=== PATIENT | male | born 1955 | race Caucasian/White ===

== ENCOUNTER → 2021-02-21 11:22 | Outpatient (BNVA) | payer BC, SELFPAY | PROVIDERS: Visit Provider Family Medicine | DX: I10 Essential (primary) hypertension (principal); G89.4 Chronic pain syndrome; E11.9 Type 2 diabetes mellitus without complications; N40.0 Benign prostatic hyperplasia without lower urinary tract symptoms; K21.9 Gastro-esophageal reflux disease without esophagitis; Z98.890 Other specified postprocedural states; J30.9 Allergic rhinitis, unspecified; G89.29 Other chronic pain; Z98.1 Arthrodesis status; Z12.5 Encounter for screening for malignant neoplasm of prostate | CPT/HCPCS: 80053; 83036; 84153 ==

== ENCOUNTER → 2021-03-01 10:56 | Outpatient (BNVA) | payer BC, SELFPAY | PROVIDERS: Visit Provider Emergency Medicine | DX: R68.89 Other general symptoms and signs (principal); Z20.822 Contact with and (suspected) exposure to COVID-19 | CPT/HCPCS: 87400; 87635 ==

== ENCOUNTER → 2021-07-15 10:46 | Outpatient (BNVA) | payer BC, SELFPAY | PROVIDERS: PCP Family Medicine; Visit Provider Family Medicine | DX: E04.9 Nontoxic goiter, unspecified (principal); N40.0 Benign prostatic hyperplasia without lower urinary tract symptoms; Z12.5 Encounter for screening for malignant neoplasm of prostate; Z13.6 Encounter for screening for cardiovascular disorders; Z13.220 Encounter for screening for lipoid disorders; E11.9 Type 2 diabetes mellitus without complications | CPT/HCPCS: 80053; 80061; 83036; 83721; 84153; 84443 ==

== ENCOUNTER → 2021-08-07 10:34 | Outpatient (BNVA) | payer BC, SELFPAY | PROVIDERS: PCP Family Medicine; Visit Provider Internal Medicine | DX: E11.40 Type 2 diabetes mellitus with diabetic neuropathy, unspecified (principal); E78.5 Hyperlipidemia, unspecified; Z78.9 Other specified health status; Z79.4 Long term (current) use of insulin | CPT/HCPCS: 99214 ==

== ENCOUNTER → 2021-10-14 10:12 | Outpatient (BNVA) | payer BC, SELFPAY | PROVIDERS: PCP Family Medicine; Visit Provider Family Medicine | DX: E11.9 Type 2 diabetes mellitus without complications (principal); R13.10 Dysphagia, unspecified; G89.4 Chronic pain syndrome; Z98.1 Arthrodesis status; M54.9 Dorsalgia, unspecified; J30.9 Allergic rhinitis, unspecified; R25.2 Cramp and spasm; J30.1 Allergic rhinitis due to pollen; I10 Essential (primary) hypertension; N40.0 Benign prostatic hyperplasia without lower urinary tract symptoms; E78.5 Hyperlipidemia, unspecified; Z78.9 Other specified health status | CPT/HCPCS: 80048; 83036 ==

== ENCOUNTER → 2022-01-06 11:11 | Outpatient (BNVA) | payer MEDICARE, SELFPAY | PROVIDERS: PCP Family Medicine; Visit Provider Family Medicine | DX: G89.4 Chronic pain syndrome (principal); Z98.1 Arthrodesis status; M54.9 Dorsalgia, unspecified; I10 Essential (primary) hypertension; E11.9 Type 2 diabetes mellitus without complications; R25.2 Cramp and spasm; J30.1 Allergic rhinitis due to pollen; Z98.890 Other specified postprocedural states; N40.0 Benign prostatic hyperplasia without lower urinary tract symptoms; K21.9 Gastro-esophageal reflux disease without esophagitis; M25.512 Pain in left shoulder | CPT/HCPCS: 73030 ==

== ENCOUNTER → 2022-04-07 11:20 | Outpatient (BNVA) | payer MEDICARE, SELFPAY | PROVIDERS: PCP Family Medicine; Visit Provider Family Medicine | DX: K21.9 Gastro-esophageal reflux disease without esophagitis (principal); N40.0 Benign prostatic hyperplasia without lower urinary tract symptoms; I10 Essential (primary) hypertension; E11.9 Type 2 diabetes mellitus without complications; G89.4 Chronic pain syndrome; Z98.890 Other specified postprocedural states; J30.9 Allergic rhinitis, unspecified; J30.1 Allergic rhinitis due to pollen; R25.2 Cramp and spasm; M25.512 Pain in left shoulder; M54.9 Dorsalgia, unspecified | CPT/HCPCS: 80048; 83036 ==

== ENCOUNTER → 2022-04-25 09:59 | Outpatient (BNVA) | payer MEDICARE, SELFPAY | PROVIDERS: PCP Family Medicine; Visit Provider Student in an Organized Health Care Education/Training Program | DX: M12.812 Other specific arthropathies, not elsewhere classified, left shoulder (principal); S49.92XA Unspecified injury of left shoulder and upper arm, initial encounter; W19.XXXA Unspecified fall, initial encounter | CPT/HCPCS: 20610; 73030; 99203; 99204; J3301 ==

== ENCOUNTER → 2022-06-06 07:55 | Outpatient (BNVA) | payer MEDICARE, SELFPAY | PROVIDERS: PCP Family Medicine; Visit Provider Student in an Organized Health Care Education/Training Program | DX: M12.812 Other specific arthropathies, not elsewhere classified, left shoulder (principal) | CPT/HCPCS: 99213 ==

== ENCOUNTER → 2022-08-08 13:07 | Outpatient (BNVA) | payer MEDICARE, SELFPAY | PROVIDERS: PCP Family Medicine; Visit Provider Emergency Medicine | DX: M17.12 Unilateral primary osteoarthritis, left knee (principal); M25.562 Pain in left knee | CPT/HCPCS: 73562 ==

== ENCOUNTER → 2022-10-03 10:18 | Outpatient (BNVA) | payer MEDICARE, SELFPAY | PROVIDERS: PCP Family Medicine; Referring Provider Family Medicine; Visit Provider Internal Medicine | DX: E11.40 Type 2 diabetes mellitus with diabetic neuropathy, unspecified (principal); E78.5 Hyperlipidemia, unspecified; Z78.9 Other specified health status; Z79.84 Long term (current) use of oral hypoglycemic drugs | CPT/HCPCS: 99214 ==

== ENCOUNTER → 2022-10-17 08:23 | Outpatient (BNVA) | payer MEDICARE, SELFPAY | PROVIDERS: PCP Family Medicine; Referring Provider Family Medicine; Visit Provider Otolaryngology | DX: E04.1 Nontoxic single thyroid nodule (principal); E04.2 Nontoxic multinodular goiter; T17.908A Unspecified foreign body in respiratory tract, part unspecified causing other injury, initial encounter; X58.XXXA Exposure to other specified factors, initial encounter | CPT/HCPCS: 31575; 99204 ==

== ENCOUNTER 2022-11-12 14:01 | Outpatient (CLI) | payer MEDICARE, SELFPAY ==
--- NOTE | 2022-11-12 14:30 | US_ITS ---
WS: [id number] THYROID ULTRASOUND HISTORY: thyroid nodule COMPARISON: None available. Right lobe: 2.6 cm x 2.9 cm x 4.4 cm (w x ap x l). Volume: 17.2 cm3. Normal size gland. There is a very hypoechoic nodule in the mid posterior gland measuring 1.2 x 0.9 x 1.2 cm. No echogenic foci. There is a small colloid cyst in the anterior mid gland. This is less peri n a centimeter. Left lobe: 2.0 cm x 2.1 cm x 4.9 cm (w x ap x l). Volume: 10.8 cm3. Hypoechoic lobulated nodule is noted in the inferior pole measuring 1.0 x 0.7 x 1.4 cm. Mild peripher al increased vascularity. No echogenic foci. Isthmus: 0.4 cm. US/US thyroid [id number] IMPRESSION: 1. Mid RIGHT thyroid nodule (TI-rads 4). Moderately suspicious based upon the TI- rads criteria. Recommend yearly evaluation. If this nodule becomes greater than 1.5 cm biopsy may be obtained. This may be difficult to biopsy due to its very posterior and deep position within the thyroid. 2. LEFT thyroid nodule. As per history this nodule has undergone a prior biops y. No prior studies for comparison. This nodule can also be reevaluated in one year.
== END 2022-11-12 14:02 | disposition home or self-care (01) ==
LOC: RAD 14:04
PROVIDERS: PCP Family Medicine; Visit Provider Otolaryngology
DX: E04.1 Nontoxic single thyroid nodule (principal)
CPT/HCPCS: 76536

== ENCOUNTER → 2022-11-25 14:37 | Outpatient (BNVA) | payer MEDICARE, SELFPAY | PROVIDERS: PCP Family Medicine; Visit Provider Family Medicine | DX: E11.9 Type 2 diabetes mellitus without complications (principal); G89.4 Chronic pain syndrome; Z98.1 Arthrodesis status; M54.9 Dorsalgia, unspecified; G89.29 Other chronic pain; N40.0 Benign prostatic hyperplasia without lower urinary tract symptoms; Z98.890 Other specified postprocedural states; I10 Essential (primary) hypertension; J30.1 Allergic rhinitis due to pollen; J40 Bronchitis, not specified as acute or chronic; E78.5 Hyperlipidemia, unspecified | CPT/HCPCS: 80053; 80061; 83036 ==

== ENCOUNTER → 2022-11-26 10:10 | Outpatient (BNVA) | payer MEDICARE, SELFPAY | PROVIDERS: PCP Family Medicine; Visit Provider Otolaryngology | DX: E04.2 Nontoxic multinodular goiter (principal) | CPT/HCPCS: 99213 ==

== ENCOUNTER → 2023-01-02 10:45 | Outpatient (BNVA) | payer MEDICARE, SELFPAY | PROVIDERS: PCP Family Medicine; Visit Provider Internal Medicine | DX: E11.9 Type 2 diabetes mellitus without complications (principal); E78.2 Mixed hyperlipidemia; Z78.9 Other specified health status; Z79.84 Long term (current) use of oral hypoglycemic drugs | CPT/HCPCS: 99214 ==

== ENCOUNTER → 2023-01-08 14:44 | Outpatient (BNVA) | payer MEDICARE, SELFPAY | PROVIDERS: PCP Family Medicine; Visit Provider Family Medicine | DX: E11.9 Type 2 diabetes mellitus without complications (principal); M54.50 Low back pain, unspecified; G47.33 Obstructive sleep apnea (adult) (pediatric); E78.2 Mixed hyperlipidemia; R74.8 Abnormal levels of other serum enzymes; M54.9 Dorsalgia, unspecified; G89.29 Other chronic pain | CPT/HCPCS: 81000; 87086 ==

== ENCOUNTER → 2023-02-05 08:50 | Outpatient (BNVA) | payer MEDICARE, SELFPAY | PROVIDERS: PCP Family Medicine; Visit Provider Family Medicine | DX: G89.4 Chronic pain syndrome (principal); Z98.1 Arthrodesis status; M54.9 Dorsalgia, unspecified; G89.29 Other chronic pain; E11.9 Type 2 diabetes mellitus without complications; I10 Essential (primary) hypertension; G47.33 Obstructive sleep apnea (adult) (pediatric); R74.8 Abnormal levels of other serum enzymes; J06.9 Acute upper respiratory infection, unspecified; Z96.89 Presence of other specified functional implants | CPT/HCPCS: 80053; 83036 ==

== ENCOUNTER → 2023-02-12 13:56 | Outpatient (BNVA) | payer MEDICARE, SELFPAY | PROVIDERS: PCP Family Medicine; Visit Provider Student in an Organized Health Care Education/Training Program | DX: M12.812 Other specific arthropathies, not elsewhere classified, left shoulder (principal) | CPT/HCPCS: 20610; 73030; 99214; J3301 ==

== ENCOUNTER → 2023-03-05 14:06 | Outpatient (BNVA) | payer MEDICARE, SELFPAY | PROVIDERS: PCP Family Medicine; Visit Provider Orthopaedic Surgery | DX: M54.50 Low back pain, unspecified (principal); G89.29 Other chronic pain; M54.9 Dorsalgia, unspecified | CPT/HCPCS: 72110; 99204 ==

== ENCOUNTER → 2023-05-14 07:58 | Outpatient (BNVA) | payer MEDICARE, SELFPAY | PROVIDERS: PCP Family Medicine; Visit Provider Student in an Organized Health Care Education/Training Program | DX: M12.812 Other specific arthropathies, not elsewhere classified, left shoulder (principal); G56.01 Carpal tunnel syndrome, right upper limb | CPT/HCPCS: 99213 ==

== ENCOUNTER → 2023-05-21 14:22 | Outpatient (BNVA) | payer MEDICARE, SELFPAY | PROVIDERS: PCP Family Medicine; Visit Provider Orthopaedic Surgery | DX: M48.02 Spinal stenosis, cervical region (principal); M47.22 Other spondylosis with radiculopathy, cervical region; Z96.82 Presence of neurostimulator | CPT/HCPCS: 72050; 99214 ==

== ENCOUNTER → 2023-05-25 10:59 | Outpatient (BNVA) | payer MEDICARE, SELFPAY | PROVIDERS: PCP Family Medicine; Visit Provider Family Medicine | DX: E11.9 Type 2 diabetes mellitus without complications (principal); E78.5 Hyperlipidemia, unspecified; E78.2 Mixed hyperlipidemia; G89.4 Chronic pain syndrome; Z98.1 Arthrodesis status; M54.9 Dorsalgia, unspecified; G89.29 Other chronic pain; N40.0 Benign prostatic hyperplasia without lower urinary tract symptoms; K21.9 Gastro-esophageal reflux disease without esophagitis; Z98.890 Other specified postprocedural states; I10 Essential (primary) hypertension; G47.33 Obstructive sleep apnea (adult) (pediatric); N52.01 Erectile dysfunction due to arterial insufficiency | CPT/HCPCS: 80048; 80053; 80061; 82043; 83036 ==

== ENCOUNTER 2023-06-17 06:57 | Outpatient (CLI) | payer MEDICARE, SELFPAY ==
--- NOTE | 2023-06-17 07:15 | MR_ITS ---
WS: [id number] MRI LEFT SHOULDER HISTORY: left shoulder pain COMPARISON: Radiographs 02/12/2023 TECHNIQUE: Multiplanar sequences of the shoulder joint are submitted. Severe AC joint arthritis encroaching upon the supraspinatus myotendinous insertion site. Marked hype rtrophic bone formation. Fluid along the AC joint ligament. Mild downsloping of the acromion with con tact on the superior humeral head. Markedly high riding humeral head. No os acromion. Biceps tendon i s not definitely visualized in the bicipital groove. There is a focal area of low signal in the bicip ital groove. If this is the tendon is abnormal. High riding humeral head marked narrowing of the glenohumeral joint. Moderate size joint effusion. Lo ss of the cartilage surrounding the humeral head and glenoid. Abnormal shape and configuration and si gnal in the anterior labrum. Surface fraying of the posterior labrum. There is a large osteophyte fro m the superior glenoid which corresponds to the finding seen on the recent radiograph. Superior labru m is not identified. Marked atrophy of the supraspinatus, infraspinatus and subscapularis muscles. Torn retracted subscapu lucai tendon. Tendon is torn and retracted to the glenoid. Subscapularis is torn and retracted also n ear the glenoid. Fraying along the retracted surface of the tendon. Torn retracted infraspinatus tend on. IMPRESSION: 1. Advanced degenerative changes at the shoulder joint. 2. Severe AC joint arthritis with encroachment upon the myotendinous region of the supraspinatus. 3. Downsloping of the acromion with severe subacromial impingement. Acromion contacts the humeral hea d. 4. Torn rotator cuff muscles include the supraspinatus, infraspinatus and subscapularis tendons with retraction. Muscle atrophy is also evident. 5. Torn and dislocated biceps tendon. 6. Abnormal labrum. Most significant abnormality involves the superior and anterior labrum. 7. Loss of cartilage involving the glenoid and humeral head. 8. Large osteophyte extending superiorly from the glenoid into the joint space.
--- NOTE | 2023-06-17 08:00 | MR_ITS ---
WS: [id number] MRI CERVICAL SPINE NONCONTRAST HISTORY: Chronic neck and LEFT shoulder pain. No injury. COMPARISON: None available. Technique: Multiplanar, multisequence noncontrast imaging of the cervical spine. Normal cervical alignment with no compression fracture or significant disc space narrowing. Signal within the cervical cord is normal. Visualized posterior fossa is unremarkable. Craniocervical junction, C1 and C2 relationship, odontoid process and soft tissues are normal. C2-C3: Normal. C3-C4: Mild annular disc bulging. Moderate-sized LEFT foraminal disc osteophyte complex. Moderate uzair ateral foraminal stenosis and facet arthritis. C4-C5: Moderate bilateral facet arthritis. Mild bilateral foraminal stenosis. C5-C6: Marked annular disc bulging and osteophytic ridging. Mild facet arthritis. Effacement of CSF i s near complete. Moderate central with moderate to severe bilateral foraminal stenosis. C6-C7: Marked annular disc bulging and osteophytic ridging. More focal RIGHT proximal foraminal disc osteophyte complex. Effacement of CSF. Severe central and bilateral foraminal stenosis. C7-T1: Mild annular disc bulging and osteophytic ridging. Mild central and bilateral foraminal stenos is. Paraspinal soft tissue are normal. IMPRESSION: 1. C5-6: Moderate central with moderate to severe bilateral foraminal stenosis. Due to combination of disc, osteophyte and facet disease. 2. C6-7: Severe central and bilateral foraminal stenosis. Stenosis due to disc, osteophyte and facet disease. 3. C3-4: Moderate bilateral foraminal stenosis. 4. C7-T1: Mild central and bilateral foraminal stenosis. 5. C4-5: Mild bilateral foraminal stenosis.
== END 2023-06-17 06:58 | disposition home or self-care (01) ==
LOC: RAD 06:57
PROVIDERS: PCP Family Medicine; Visit Provider Orthopaedic Surgery
DX: M12.812 Other specific arthropathies, not elsewhere classified, left shoulder (principal); M48.02 Spinal stenosis, cervical region; M75.102 Unspecified rotator cuff tear or rupture of left shoulder, not specified as traumatic; S46.212A Strain of muscle, fascia and tendon of other parts of biceps, left arm, initial encounter; X58.XXXA Exposure to other specified factors, initial encounter; M25.78 Osteophyte, vertebrae; M75.42 Impingement syndrome of left shoulder
CPT/HCPCS: 72141; 73221

== ENCOUNTER → 2023-06-30 14:14 | Outpatient (BNVA) | payer MEDICARE, SELFPAY | PROVIDERS: PCP Family Medicine; Visit Provider Orthopaedic Surgery | DX: M47.22 Other spondylosis with radiculopathy, cervical region | CPT/HCPCS: 99214 ==

== ENCOUNTER → 2023-07-17 09:38 | Outpatient (BNVA) | payer MEDICARE, SELFPAY | PROVIDERS: PCP Family Medicine; Visit Provider Student in an Organized Health Care Education/Training Program | DX: M12.812 Other specific arthropathies, not elsewhere classified, left shoulder (principal) | CPT/HCPCS: 99214 ==

== ENCOUNTER → 2023-08-05 13:38 | Outpatient (BNVA) | payer MEDICARE, SELFPAY | PROVIDERS: PCP Family Medicine; Visit Provider Nurse Practitioner Family | DX: R69 Illness, unspecified (principal); U07.1 COVID-19; L08.9 Local infection of the skin and subcutaneous tissue, unspecified | CPT/HCPCS: 87400; 87426 ==

== ENCOUNTER → 2023-08-13 09:51 | Outpatient (BNVA) | payer MEDICARE, SELFPAY | PROVIDERS: PCP Family Medicine; Visit Provider Anesthesiology Pain Medicine | DX: M48.02 Spinal stenosis, cervical region (principal); G89.29 Other chronic pain; M47.22 Other spondylosis with radiculopathy, cervical region | CPT/HCPCS: 99204 ==

== ENCOUNTER → 2023-08-18 09:00 | Outpatient (BNVA) | payer MEDICARE, SELFPAY | PROVIDERS: PCP Family Medicine; Visit Provider Student in an Organized Health Care Education/Training Program | DX: M12.812 Other specific arthropathies, not elsewhere classified, left shoulder (principal); Z01.818 Encounter for other preprocedural examination | CPT/HCPCS: 36415; 80053; 81001; 85025; 99214 ==

== ENCOUNTER 2023-09-02 07:58 | Outpatient (CLI) | payer MEDICARE, SELFPAY ==
--- NOTE | 2023-09-02 08:30 | CTR_ITS ---
PROCEDURE INFORMATION: Exam: CT Left Upper Extremity Without Contrast, Shoulder Exam date and time: 09/02/2023 8:14 AM Age: 68 years old Clinical indication: Pain; Patient HX: Pre op left reverse total shoulder; Additional info: Left reverse total shoulder, prior to surgery 09/14/22 TECHNIQUE: Imaging protocol: Computed tomography of the left upper extremity without contrast. Exam focused on the shoulder. Radiation optimization: All CT scans at this facility use at least one of these dose optimization techniques: automated exposure control; mA and/or kV adjustment per patient size (includes targeted exams where dose is matched to clinical indication); or iterative reconstruction. COMPARISON: MR shoulder LT wo con* [id number] 06/17/2023 7:30 AM RADIATION DOSE METRICS: Total DLP (mGy-cm): 444.56 FINDINGS: Bones/joints: Mild superior subluxation of the humeral head within the glenoid fossa is noted associated with slight flattening of the undersurface of acromion which appears to form a pseudoarticulation with the humeral head on series 7, image 69. Moderate osteophytes arise from the distal clavicle, glenoid and humeral head. There is a similar old appearing well-corticated ossified body along the superior glenohumeral joint measuring 1.7 x 1.1 x 0.8 cm on series 7, image 75. A similar well-corticated ossified body along the anterior aspect of the humeral head is noted on series 4, image 53 measuring 0.9 x 0.3 x 0.5 cm. No acute fracture is identified. An ovoid sclerotic density in the scapula on series 4, image 25 is compatible with a benign bone island. Degenerative changes in the visualized spine are noted. Mild bilateral sternoclavicular joint primary osteoarthritic changes. Soft tissues: Moderate supraspinatus and mild subscapularis muscle atrophy is noted. Lungs: A left upper lobe calcified granuloma is noted. Other findings: A posterior right thyroid lobe 9 mm low-density nodule on series 5, image 21 is present. Coronary artery atherosclerotic calcifications are noted. CT/CT shoulder LT wo con* [id number] IMPRESSION: 1. No acute left shoulder findings. 2. Glenohumeral joint and acromioclavicular joint primary osteoarthritic changes. 3. Superior subluxation of the humeral head is noted within the glenoid fossa with an apparent pseudoarticulation with the undersurface of the acromion. This finding is associated with the known full-thickness tears of the supraspinatus and infraspinatus tendons on the comparison MRI. Assessment of the rotator cuff is limited by CT. 4. Two well corticated ossified bodies are noted along the superior anterior glenohumeral joint. 5. Supraspinatus and subscapularis muscle atrophy. 6. A 9 mm right thyroid nodule is noted, statistically benign. No follow-up is necessary. 7. Degenerative changes of the spine, incompletely evaluated.
== END 2023-09-02 07:59 | disposition home or self-care (01) ==
LOC: RAD 07:58
PROVIDERS: PCP Family Medicine; Visit Provider Student in an Organized Health Care Education/Training Program
DX: M12.812 Other specific arthropathies, not elsewhere classified, left shoulder (principal); M75.122 Complete rotator cuff tear or rupture of left shoulder, not specified as traumatic
CPT/HCPCS: 73200

== ENCOUNTER 2023-09-14 14:51 | Observation (INO) | payer MEDICARE, SELFPAY ==
[2023-09-14] VITALS (20 sets, daily range): BP systolic 114–171; BP diastolic 66–105; PULSE 70–82; RESP 16–18; TEMP 36.2–36.8; O2SAT 92–98; BMI 36.1
[2023-09-14] MEDS: acetaminophen 1,000 MG/100 ML PIGGYBACK 400 MG IV (08:42)
[2023-09-14] MEDS: ketorolac 30 mg/mL INJ IVP (08:42)
[2023-09-14] MEDS: sodium chloride 0.9% 1,000 ML 30 ML IV (08:43)
[2023-09-14] MEDS: lactated ringers 500 ML IV (08:43)
--- NOTE | 2023-09-14 08:52 | P.ANESASSM_ITS ---
Pre-Anesthetic Assessment Height/Weight: Height 1.68 m Weight 97.069 kg Temp Pulse Resp BP Pulse Ox O2 Del Method 98.2 F 73 16 171/105 96 Room Air 09/14/23 08:22 09/14/23 08:22 09/14/23 08:22 09/14/23 08:22 09/14/23 08:22 09/14/23 08:37 Preop Diagnosis: Left shoulder rotator cuff arthropathy Operation Date: 09/14/23 12:10 Proposed Procedures p Total Reverse Shoulder Arthroplasty/ left reverse total shoulder arthroplasty(Left) - Garret Nevarez DO Familial anesthetic complications: None Was Beta Aileen taken within 24 hours: Yes Was Clonidine taken within 24 hours: N/A Last intake: Intake Last Liquid Date 09/13/23 Last Liquid Time 20:00 Last Solid Date 09/13/23 Last Solid Time 20:00 Social No alcohol and No tobacco Exam alert, oriented x 3, clear to auscultation bilaterally and regular rate & rhythm Airway Mallampati: Class III Dentition: full Comments: Comments: full elam Pulmonary Sleep Apnea CV/HEM Hypertension GI Gastroesophageal Reflux Disease Metabolic Diabetes Mellitus and Thyroid Disease Goiter, patient states no significant growth since seeing antonietta in office of 10/23 where airway exam appeared normal. Patient unable to palpate nodules externally as well. Anesthetic Plan ASA status: 3 Anesthesia: General and Regional (specify below) Risk of > 500 ml blood loss (7ml/kg in children): No Medications/Allergies Home Medications Medication Instructions Recorded Confirmed Last Taken Type aspirin 81 mg tablet,delayed 81 mg PO DAILY 02/21/21 09/11/23 09/09/23 History release magnesium citrate 100 mg capsule 100 mg PO DAILY 02/21/21 09/11/23 09/13/23 History fluticasone propionate 50 1 spray intranasal Q12H #15.8 mL 04/07/22 09/11/23 09/10/23 Rx mcg/actuation nasal spray,suspension albuterol sulfate 90 mcg/actuation 2 puff inhalation QID PRN 11/25/22 09/11/23 Unknown Rx aerosol inhaler (ProAir HFA) shortness of breath or wheezing 30 days #18 grams glipizide 2.5 mg tablet, extended 2.5 mg PO DAILY 30 days #30 tabs 01/08/23 09/11/23 Unknown Rx release 24 hr metformin 500 mg tablet,extended 1,000 mg (2 x 500 mg) PO BID #360 02/05/23 09/11/23 09/12/23 Rx release 24 hr tabs acarbose 50 mg tablet 50 mg PO TID 30 days #90 tabs 04/30/23 09/11/23 09/13/23 Rx amlodipine 10 mg tablet 10 mg PO DAILY 90 days #90 tabs 05/25/23 09/11/23 09/13/23 Rx duloxetine 60 mg capsule,delayed 60 mg PO BID 90 days #180 caps 05/25/23 09/11/23 09/13/23 Rx release hydrochlorothiazide 25 mg tablet 25 mg PO QAM 90 days #90 tabs 05/25/23 09/11/23 09/13/23 Rx lisinopril 40 mg tablet 40 mg PO DAILY 90 days #90 tabs 05/25/23 09/11/23 09/13/23 Rx meloxicam 15 mg tablet 15 mg PO DAILY 90 days #90 tabs 05/25/23 09/11/23 09/09/23 Rx metoprolol succinate 200 mg 200 mg PO DAILY 90 days #90 tabs 05/25/23 09/11/23 09/14/23 Rx tablet,extended release 24 hr omeprazole 20 mg capsule,delayed 20 mg PO DAILY 90 days #90 caps 05/25/23 09/11/23 09/13/23 Rx release sitagliptin phosphate 25 mg tablet 25 mg PO DAILY 90 days #90 tabs 05/25/23 09/11/23 09/10/23 Rx tamsulosin 0.4 mg capsule 0.8 mg (2 x 0.4 mg) PO DAILY 90 05/25/23 09/11/23 09/13/23 Rx days #180 caps pregabalin 150 mg capsule 150 mg PO TID 30 days #90 caps 08/17/23 09/11/23 09/13/23 Rx triamcinolone acetonide 0.1 % 1 applic topical BID #80 grams 08/17/23 09/11/23 09/13/23 Rx topical cream cetirizine 10 mg tablet 10 mg PO DAILY PRN allergy 08/29/23 09/11/23 09/13/23 Rx symptoms 90 days #90 tabs Allergies Allergy/AdvReac Type Severity Reaction Status Date / Time celecoxib [From Celebrex] AdvReac Mild ADR-NAUSEA Verified 09/14/23 08:27 [id number]-[id number]-UoI Reductase AdvReac Mild ADR-Cramping Verified 09/14/23 08:27 Inhibitor of the [Wusylzm-Ihw-Zge Reductase Muscles Inhibitor] Current Medications Generic Name Dose Route Start Last Admin Trade Name Druq PRN Reason Stop Dose Admin Lactated Ringer's 500 mls @ 500 mls/hr 09/14/23 08:21 09/14/23 08:43 Lactated Ringers IV 09/14/23 09:20 500 mls/hr .Q1H ONE Administration Sodium Chloride 1,000 mls @ 30 mls/hr 09/14/23 08:30 09/14/23 08:43 Sodium Chloride 0.9% IV 09/15/23 08:29 30 mls/hr .Q24H DAVID Administration PFSH Anesthesia Medical History Rotator cuff arthropathy of left shoulder Chronic back pain greater than 3 months duration Allergic rhinitis GERD (gastroesophageal reflux disease) BPH (benign prostatic hyperplasia) Type 2 diabetes mellitus Chronic pain syndrome Benign hypertension Surgical History H/O knee surgery Previous back surgery Family History Father Cancer Mother Diabetes Sister Diabetes Brother Diabetes Cancer Denies family history of Hypertension Stroke Social History Smoking and tobacco/nicotine status: never used tobacco/nicotine Alcohol intake: never Substance/Drug Use: never Data Anesthesia 09/14/23 08:52 09/14/23 08:52 Cardiac Studies: 2 No Data to Display
[2023-09-14 09:06] LABS: Glucose Point of Care 221 mg/dL (70-110)
[2023-09-14 09:07] LABS: Basophils # 0.1 10^3/uL (0.0-0.1); Basophils % 0.7 %; Eosinophils # 0.1 10^3/uL (0.0-0.8); Eosinophils % 1.7 %; Hematocrit 44.9 % (37-53); Lymphocytes # 2.2 10^3/uL (0.8-4.8); Lymphocytes % 26.8 %; Mean Corpuscular HGB Conc 34.3 g/dL (30-55); Mean Corpuscular Hemoglobin 28.4 pg (27-33); Mean Corpuscular Volume 82.8 fl (82-101); Mean Platelet Volume 10.6 fL (7.4-10.4); Monocytes # 0.6 10^3/uL (0.2-0.9); Neutrophils # 5.19 10^3/uL (1.8-7.7); Neutrophils % 63.4 %; Nucleated Red Blood Cells % 0 %; Platelet Count 234 10^3/cmm (157-399); Red Blood Count 5.42 10^6/uL (3.85-5.65); Red Cell Distribution Width 13.9 % (12.1-15.1); White Blood Count 8.18 10^3/uL (3.29-11.43)
[2023-09-14 09:24] LABS: Anion Gap 16.4 (5-19); Blood Urea Nitrogen 16 mg/dL (8-23); Calcium 9.9 mg/dL (8.5-10.5); Carbon Dioxide 28 mmol/L (22-29); Chloride 95 mmol/L (98-107); Glomerular Filtration Rate 74.8 mL/min (90-130); Glucose 213 mg/dL (65-115); Osmolality Calculated 288 mOsm/kg (285-295); Potassium 4.4 mmol/L (3.5-5.1); Sodium 135 mmol/L (136-145)
--- NOTE | 2023-09-14 09:36 | ANES.PROC ---
Anesthesia Procedures Procedure/Date: 09/14/23 Nerve Block ^: Nerve Block 1: Main Anesthesia: general anesthesia Time Out Performed: Yes Consent: requested by attending/covering physician, from patient, from other, risks and benefits reviewed and patient agrees to proceed Nerve block location: interscalene (L) Anesthesia monitors applied: pulse oximetry, EKG and BP cuff Nerve block position: semi sitting Anesthetic Used: ropivicaine 0.5% (20 ml) and with decadron (3 mg) Ultrasound used to: recognize landmarks, visualize and ID brachial plexus, in supraclavicular region and visualize and ID interscalene groove Nerve Stimulator Used?: No Interscalene/Femoral BLK: 2 stimuplex 22 g needle used for position and inplane approach, visualize local anesthetic spread and no vascular puncture identified Injection: neg aspiration of heme Patient Tolerated Procedure: well and no complications Complications: none
--- NOTE | 2023-09-14 09:46 | P.HPUD_ITS ---
Surgery/Procedure H&P Update DATE OF PROCEDURE: September 14, 2023 DATE H&P PERFORMED: 08/18/23 H&P UPDATE INFORMATION: I have reviewed H&P completed within last 30 days, I have examined patient prior to procedure and No changes to prior documentation PREOP DIAGNOSIS: Left shoulder rotator cuff arthropathy PRIMARY INDICATION FOR PROCEDURE: Left shoulder rotator cuff arthropathy PLANNED PROCEDURE: Operation Date: 09/14/23 12:10 Proposed Procedures p Total Reverse Shoulder Arthroplasty/ left reverse total shoulder arthroplasty (Left) - Garret Nevarez DO
--- NOTE | 2023-09-14 09:52 | ECG_ITS ---
[facility] Test Date: 2023-09-14 Pat Name: Tim Zavala Department: Room: Gender: Male Sole Buffer: : 1955 Requested By: Garret Nevarez Order Number: [id number] Luis MD: Kedar Downing M.D. Measurements Intervals [place] Rate: 70 P: 14 IL: 166 QRS: 22 QRSD: 90 T: 37 QT: 378 QTc: 408 Interpretive Statements SINUS RHYTHM No previous ECG available for comparison Electronically Signed On 09-14-2023 11:22:17 [employer] by Kedar Downing M.D. [id number]
[2023-09-14] MEDS: ceFAZolin 2,000 MG in sodium chloride 0.9% (plus) 50 ML 100 MG IV ×2 (11:31→18:47)
[2023-09-14] MEDS: tranexamic acid 1,000 mg/10mL SDV 1000 MG IV (11:33)
[2023-09-14] MEDS: vancomycin 1,000 MG SDV 1000 MG XX (12:24)
--- NOTE | 2023-09-14 14:06 | P.BOP_ITS ---
Date of Procedure: 09/14/2023 Surgeon: Garret Nevarez DO Manager Of Organizational Development(s): Alton Nevarez PA-C Procedure(s) performed: Left reverse total shoulder arthroplasty Findings of the procedure(s): Patient was found to have completely torn left shoulder rotator cuff and findings consistent with left shoulder rotator cuff arthropathy with torn subscapularis tendon as well. Patient already had long head of biceps tendon was torn and unidentifiable past the pec insertion at this point and this was left alone no tenodesis performed patient and subsequently underwent left reverse total shoulder arthroplasty without any issues. Estimated blood loss: 50 mL Specimen(s) removed: Humerus cut and glenoid reamings removed Post-operative diagnosis: Left shoulder rotator cuff arthropathy
--- NOTE | 2023-09-14 14:08 | P.OP_ITS ---
Operative Report Date of procedure: September 14, 2023 Surgeon: Garret Nevarez DO Procedure: Preop Diagnosis?left shoulder shoulder degenerative joint disease Post-op diagnosis: same Post-op diagnosis:? Same Procedure done:? Left?reverse?total shoulder arthroplasty Implants:? [employer]?reverse?total shoulder arthroplasty comprehensive system Size 14 mm mini humeral stem 36 mm glenosphere diameter at +2.5mm offset Glenosphere mini baseplate Central screw?6.5 mm by 35 mm Fixed locking screws (25 mm, 20 mm, 15 mm, 15 mm) Standard mini humeral tray with +3 mm polyethylene thickness Surgeon:? Garret Nevarez DO Estimated blood loss:? 50 mL IV fluids:? 1100 mL Urine output:? none Complications:? None Findings:? See operative report narrative Condition: stable Disposition: floor Brief History:? Pt is a pleasant 68-year-old female who is worked up in the outpatient setting for chronic left shoulder arthrtitis with rotator cuff arthropathy.? Pt has failed conservative treatment and? was interested in further treatment options we talked about? continued nonoperative versus operative intervention given rotator cuff tear on MRI would recommend a left?reverse?total shoulder arth roplasty.? Pt has been medically optimized and cleared for surgery by the anesthesia department.? Through shared decision-making pt like?to?proceed with a left?reverse?total shoulder arthroplasty.? All questions been answered at this time once again pt understands the risk benefits complication alternatives the treatment option understanding risk of surgery pt agrees?to?proceed.? All questions answered. Procedure:? Patient seen evaluated in the preoperative holding area.? Consent was reviewed and signed with patient once again detailed out the ins and outs of the procedure.? Correct extremity was marked.? Final questions answered.? Patient was seen evaluated by Anesthesia Department once cleared for surgery pt was taken back?to?the operative suite.? pt was placed in supine position all bony prominences well-padded patient was appropriate secured?to?the bed pt underwent anesthesia per the anesthesia department once appropriately anesthetized he was then subsequently set into a lazy beachchair position utilizing our standard OR table.? Once we confirmed appropriate positioning we then subsequently prepped and draped the left upper extremity in standard orthopedic fashion.? Final timeout performed.? Patient received appropriate preoperative antibiotics. Standard deltopectoral approach was then made just lateral?to?the coracoid.? I utilized electrocautery?to?maintain exact hemostasis throughout my dissection.? I subsequently identified the cephalic vein dissected this out carefully and this was taken medially with Cobell retractor and I entered the deltopectoral interval.? Next I released the clavipectoral fascia and at this point time, bicep tendon was found to already be tentomized and retracted.? This was then isolated and I opened up the bicipital groove within the interval taken this all the way?to?its insertion site.? no tendodesis was performed. Of note patient had significant attenuation of subscapularis tendon as well as tearing of rotator cuff.? I then subsequently performed a subscapularis remanent peel off of the lesser tuberosity this was tagged with 0 Vicryl suture and utilized for manipulation throughout the case.? I then subsequently performed a complete release in standard fashion with care?to?stay directly onto bone and protecting maxillary nerve throughout the case.? Once standard residual release was performed I then protected the entirety of the humeral head and subsequently began with my humeral stem prep. Canal finder was used just off the articular margin and canal centralizer was satisfactory.? I then subsequently broached up?to?appropriate depth and canal fit which was determined?to?be 14.? 14 was left on and subsequently brought in plan?to?guide of 30 degrees retroversion was then placed with my cutting guide pinned into appropriate position and making sure my rotation and version was appropriate once satisfactory and pinned in the place the intramedullary canal reamer was then subsequently removed and an oscillating saw was then used?to?perform my humeral head resection.? This was then subsequently removed.? I then sequentially broached up?to?appropriate size which was a size 14 mm humeral stem with care?to?once again maintained my appropriate version.? Once I was satisfied with this I then placed the metal And left the stem in place?to?maintain appropriate integrity of the humeral head while performing wor k on the glenoid.?? Next I then placed appropriate retraction posterior inferior posterior superior as well as anterior.? I had excellent visualization of the glenoid at this point time lydia my appropriate position.? I utilized electrocautery and remove the entirety of the labrum so I had full visualization of the glenoid.? I then utilized the [employer] comprehensive targeting guide within 10 degree tilt.? Central guidepin was then inserted and confirmed?to?be in appropriate position confirmed with preop CT plan. once satisfied with this placement I then introduced my reamer and then opened up our porous glenosphere mini baseplate this was impacted in appropriate position and rotation next I then subsequently drilled and measured my central screw and placed in appropriate length 35 mm central screw.? This had excellent fixation and purchase.? At this point time I are removed any small residual osteophytes inferiorly and at this point then I subsequently drilled measured and placed 4 locking screws circumferentially around the mini baseplate size screws were 25 mm, 20 mm, 15 mm, 15 mm.? These all had excellent fixation and I satisfied with baseplate .? Next I then opened up our glenosphere 36 diameter set this?to?the appropriate offset C giving us + 2.5 mm of offset inferiorly this was then impacted and had excellent fixation.? Utilize a?tonsil closed by hand and we had appropriate fixation of the glenosphere. ?This was then subsequently removed and then I subsequently placed the appropriate trial humeral tray which was trialed with a standard offset onto my trial 9 mm humeral stem this was subsequently reduced.? Just from initial reduction and emotional tearing of the rotator cuff patient did have small flecks of the greater tuberosity that was peeling off as result given these would be loose bodies it would be areas of impingement these were subsequently excised and the rotator cuff was left alone.? Shoulder had excellent range of motion and stability had still little bit of play as result I then subsequently trialed with a +3 mm thickness and this had satisfactory range of motion and excellent stability and appropriately tension.? This was determined?to?be my final implant.? I then subsequently dislocate the shoulder.? I then subsequently removed the trial implantations of the humerus.? Final implants were called and open for of a size 14 mini humeral stem as well as a +3 polyethylene and mini humeral tray.? This was opened and set up appropriately on the back table.? I then subsequently impacted the mini humeral stem size 14 and appropriate po sition which was exact as our trial implantation once again maintaining our appropriate version that was preset and marked and then next I subsequently dried the trunnion and impacted the appropriate humeral tray with +3 mm thickness poly.? This was then subsequently reduced and had excellent fixation range of motion and stability with appropriate tensioning.? No evidence of instability was noted.? I then subsequently opened Pulsavac and thoroughly irrigated the incision with 3 L of normal saline.? I then subsequently placed a gram of vancomycin powder for infection prophylaxis.? I then subsequently closed the subcutaneous layer with 0 and 2-0 Vicryl suture a running 3-0 Monocryl was then performed of the skin edges and then reinforce the skin edges with Steri- Strips.? A LEODAN dressing was then applied.? Sling applied. Patient was then awakened from anesthesia and taken?to?PACU in stable condition.? Patient?tolerated procedure without any complications. Disposition: Patient taken?to?PACU in stable condition recovering well will be admitted?to?the floor postoperatively internal medicine will be on board for medical management.? Patient will be nonweightbearing?to?the left shoulder.? Sling on in place.? Patient will receive appropriate postoperative pain medication DVT prophylaxis on the floor.? Will receive appropriate discharge structure as well as pain medication DVT prophylaxis.? We will work with PT/OT.?? Patient?to?follow-up with me in the office in 2 weeks.
--- NOTE | 2023-09-14 14:19 | XR_ITS ---
WS: [id number] Exam: XR shoulder LT min 2V* [id number] Date/Time of Exam: 09/14/2023 2:28 PM Reason For Exam: s/p reverse TSA Comparison 02/12/2023. A reverse shoulder prosthesis has been placed and appears to be in satisfactory position. Postoperati ve changes in the adjacent soft tissues. IMPRESSION: 1. Reverse shoulder prosthesis in satisfactory alignment.
--- NOTE | 2023-09-14 14:30 | PM.PACU ---
PACU note Narrative: Patient is a 68-year-old male who just underwent a reverse left total shoulder arthroplasty. Patient transferred to PACU in stable condition. Pain is well controlled. shoulder Dressing on , dry and in place. patient's operative arm is in a shoulder immobilizer. Patient is unarousable and still under anesthetic. Further exam limited due to patient being under anesthetic. Patient's fingers are warm with good perfusion. Normal cap refill under 2 seconds. Unable to assess further range of motion in arm due to sling. Unable to assess sensation due to residual localized anesthetic. Exam: unarousable Disposition: admitted
--- NOTE | 2023-09-14 15:14 | P.CONIM_ITS ---
Providers/Reason For Consult 2 Consulting Physician/Specialty*: Frase/Hospitalist Reason for Consult*: Diabetes and hypertension Requesting Physician: Dr Nevarez Attending Physician: Garret Nevarez DO Primary Care Provider: Kaylee Sharma MD History of Present Illness History of Present Illness Tim Zavala is a 68 year old male who presented to [facility] on the day of admission for an elective left reverse total shoulder arthroplasty by Dr. Nevarez. He has a history of complete massive rotator cuff tear and severe degenerative changes of his left shoulder failed attempts at outpatient management. He did well during surgery with no specific complications described to me. Past medical history is remarkable for hypertension, diabetes, sleep apnea and BPH along with reflux disease. He did not take any of his diabetes medicines this morning. He did take his metoprolol but does not have his other antihypertensives. At the time of my evaluation he is not complaining of any pain in his left shoulder. He did have a block which is still active. He can feel sensation in his fingers though they are a bit numb. He can move his fingers of his left hand. His arm is in a sling. He has no specific complaints otherwise. He asked good questions about postoperative care and management. He also asked questions about diabetes control. Hospitalist were consulted to assist with management of medical issues primarily diabetes and hypertension. Review of Systems 2 General: Reports: Other (ROS as per HPI or as noted here) Card: Denies: chest pain Resp: Denies: dyspnea GI: Reports: constipation (takes laxatives often); Denies: nausea or vomiting : Denies: difficulty urinating (on flomax) Musc: Reports: other (not hurting currently) Naun/Lymph: Denies: easy bleeding Medications/Allergies Home Medications Medication Instructions Recorded Confirmed Last Taken Type aspirin 81 mg tablet,delayed 81 mg PO DAILY 02/21/21 09/11/23 09/09/23 History release magnesium citrate 100 mg capsule 100 mg PO DAILY 02/21/21 09/11/23 09/13/23 History fluticasone propionate 50 1 spray intranasal Q12H #15.8 mL 04/07/22 09/11/23 09/10/23 Rx mcg/actuation nasal spray,suspension albuterol sulfate 90 mcg/actuation 2 puff inhalation QID PRN 11/25/22 09/11/23 Unknown Rx aerosol inhaler (ProAir HFA) shortness of breath or wheezing 30 days #18 grams metformin 500 mg tablet,extended 1,000 mg (2 x 500 mg) PO BID #360 02/05/23 09/11/23 09/12/23 Rx release 24 hr tabs acarbose 50 mg tablet 50 mg PO TID 30 days #90 tabs 04/30/23 09/11/23 09/13/23 Rx amlodipine 10 mg tablet 10 mg PO DAILY 90 days #90 tabs 05/25/23 09/11/23 09/13/23 Rx duloxetine 60 mg capsule,delayed 60 mg PO BID 90 days #180 caps 05/25/23 09/11/23 09/13/23 Rx release hydrochlorothiazide 25 mg tablet 25 mg PO QAM 90 days #90 tabs 05/25/23 09/11/23 09/13/23 Rx lisinopril 40 mg tablet 40 mg PO DAILY 90 days #90 tabs 05/25/23 09/11/23 09/13/23 Rx meloxicam 15 mg tablet 15 mg PO DAILY 90 days #90 tabs 05/25/23 09/11/23 09/09/23 Rx metoprolol succinate 200 mg 200 mg PO DAILY 90 days #90 tabs 05/25/23 09/11/23 09/14/23 Rx tablet,extended release 24 hr omeprazole 20 mg capsule,delayed 20 mg PO DAILY 90 days #90 caps 05/25/23 09/11/23 09/13/23 Rx release sitagliptin phosphate 25 mg tablet 25 mg PO DAILY 90 days #90 tabs 05/25/23 09/11/23 09/10/23 Rx tamsulosin 0.4 mg capsule 0.8 mg (2 x 0.4 mg) PO DAILY 90 05/25/23 09/11/23 09/13/23 Rx days #180 caps pregabalin 150 mg capsule 150 mg PO TID 30 days #90 caps 08/17/23 09/11/23 09/13/23 Rx triamcinolone acetonide 0.1 % 1 applic topical BID #80 grams 08/17/23 09/11/23 09/13/23 Rx topical cream cetirizine 10 mg tablet 10 mg PO DAILY PRN allergy 08/29/23 09/11/23 09/13/23 Rx symptoms 90 days #90 tabs Allergies Allergy/AdvReac Type Severity Reaction Status Date / Time celecoxib [From Celebrex] AdvReac Mild ADR-NAUSEA Verified 09/14/23 08:27 Eevpyqx-WFB-IwL Reductase AdvReac Mild ADR-Cramping Verified 09/14/23 08:27 Inhibitor of the [Lgsdnai-Wco-Imf Reductase Muscles Inhibitor] Current Medications Generic Name Dose Route Start Last Admin Trade Name Freq PRN Reason Stop Dose Admin Sodium Chloride 1,000 mls @ 30 mls/hr 09/14/23 08:30 09/14/23 13:55 Sodium Chloride 0.9% IV 09/15/23 08:29 Infused .Q24H DAVID Infusion PFSH Acute 2 PFSH: Medical History (Updated 09/14/23 @ 18:40 by Thu Harrington MD) NELLIE (obstructive sleep apnea) Erectile dysfunction Multinodular goiter (nontoxic) Hyperlipidemia Statin intolerance Rotator cuff arthropathy of left shoulder Chronic back pain greater than 3 months duration Allergic rhinitis GERD (gastroesophageal reflux disease) BPH (benign prostatic hyperplasia) Type 2 diabetes mellitus Chronic pain syndrome Benign hypertension Surgical History (Updated 09/14/23 @ 18:46 by Thu Harrington MD) Status post reverse arthroplasty of left shoulder (09/14/23) H/O spinal fusion H/O knee surgery Previous back surgery Family History Father Cancer Mother Diabetes Sister Diabetes Brother Diabetes Cancer Denies family history of Hypertension Stroke Social History Smoking and tobacco/nicotine status: never used tobacco/nicotine Alcohol intake: never Substance/Drug Use: never Vitals/I&O/Wt Last Vital Signs Temp 97.8 F 09/14/23 14:25 Pulse 79 09/14/23 14:45 Resp 16 09/14/23 14:45 BP 142/83 09/14/23 14:45 Pulse Ox 97 09/14/23 14:45 O2 Del Method Room Air 09/14/23 14:45 O2 Flow Rate 6 09/14/23 14:30 09/14/23 09/14/23 09/14/23 06:59 14:59 22:59 Intake Total 1750 / 1750 Output Total 50 / 50 Balance 1700 / 1700 Weight last 48 hrs Weight 97.069 kg Physical Exam 2 Narrative: Patient is awake and alert. Able to provide history. normocephalic. Pupils are equal reactive. Neck is large but supple. Lungs are clear to auscultation bilaterally. Cardiovascular exam reveals a regular rate and rhythm. Abdomen is soft, nontender with positive bowel sounds. Extremities left upper extremity is in a sling and immobilized. He is able to move fingers of his left hand. Numbness to light touch of all 5 fingertips is equal on the left hand. Strength is equal at both feet. No pitting edema. Data 09/14/23 08:52 09/14/23 08:52 Other Labs: Laboratory Results WBC 8.18 10^3/uL (3.29-11.43) 09/14/23 08:52 RBC 5.42 10^6/uL (3.85-5.65) 09/14/23 08:52 Hgb 15.40 g/dL (11.27-16.99) 09/14/23 08:52 Hct 44.9 % (37-53) 09/14/23 08:52 MCV 82.8 fl (82-101) 09/14/23 08:52 MCH 28.4 pg (27-33) 09/14/23 08:52 MCHC 34.3 g/dL (30-55) 09/14/23 08:52 RDW 13.9 % (12.1-15.1) 09/14/23 08:52 Plt Count 234 10^3/cmm (157-399) 09/14/23 08:52 MPV 10.6 fL (7.4-10.4) H 09/14/23 08:52 Neut % (Auto) 63.4 % 09/14/23 08:52 Lymph % (Auto) 26.8 % 09/14/23 08:52 [place] % (Auto) 7.0 % 09/14/23 08:52 Eos % (Auto) 1.7 % 09/14/23 08:52 Baso % (Auto) 0.7 % 09/14/23 08:52 Neut # (Auto) 5.19 10^3/uL (1.8-7.7) 09/14/23 08:52 Lymph # (Auto) 2.2 10^3/uL (0.8-4.8) 09/14/23 08:52 [place] # (Auto) 0.6 10^3/uL (0.2-0.9) 09/14/23 08:52 Eos # (Auto) 0.1 10^3/uL (0.0-0.8) 09/14/23 08:52 Baso # (Auto) 0.1 10^3/uL (0.0-0.1) 09/14/23 08:52 Nucleated RBC % (auto) 0 % 09/14/23 08:52 Nucleated RBCs # 0.0 /100WBC 09/14/23 08:52 Sodium 135 mmol/L (136-145) L 09/14/23 08:52 Potassium 4.4 mmol/L (3.5-5.1) 09/14/23 08:52 Chloride 95 mmol/L (98-107) L 09/14/23 08:52 Carbon Dioxide 28 mmol/L (22-29) 09/14/23 08:52 Anion Gap 16.4 (5-19) 09/14/23 08:52 BUN 16 mg/dL (8-23) 09/14/23 08:52 Creatinine 1.0 mg/dL (0.7-1.2) 09/14/23 08:52 GFR Calculation 74.8 mL/min (90-130) L 09/14/23 08:52 Glucose 213 mg/dL (65-115) H 09/14/23 08:52 POC Glucose 221 mg/dL (70-110) H 09/14/23 09:03 Calculated Osmolality 288 mOsm/kg (285-295) 09/14/23 08:52 Calcium 9.9 mg/dL (8.5-10.5) 09/14/23 08:52 Blood Type B Negative 09/14/23 08:52 Rho(D) Type Negative 09/14/23 08:52 Antibody Screen Negative 09/14/23 08:52 A&P Assessment and plan (1) Status post reverse arthroplasty of left shoulder: POD 0 Pain is not an issue currently as still has effects from block (2) Benign hypertension: Chronically managed with amlodipine 10 mg, hydrochlorothiazide 25 mg, lisinopril 40 mg, and metoprolol succinate 200 mg daily currently with adequate control. Only took his metoprolol this morning. (3) Type 2 diabetes mellitus: Chronic, not insulin requiring, with hyperglycemia that has improved his A1c from 8+ to 6.4 with medication adjustments and dietary changes. He is chronically on a carbose 50 mg 3 times a day, metformin 1000 mg twice a day, Januvia 25 mg daily. He had previously been prescribed glipizide but never took it. Blood sugars are typically 180 or so in the mornings. has questions about diet management. Does follow with Dr. Frazier outpatient. Qualifiers: Diabetes mellitus retirement insulin use: without retirement use Diabetes mellitus complication status: without complication Qualified Code(s): E11.9 - Type 2 diabetes mellitus without complications (4) Hyperlipidemia: Chronic diagnosis, intolerant of statin therapy Qualifiers: Hyperlipidemia type: mixed hyperlipidemia Qualified Code(s): E78.2 - Mixed hyperlipidemia (5) BPH (benign prostatic hyperplasia): Chronically on Flomax Qualifiers: Lower urinary tract symptom presence: symptoms absent Qualified Code(s): N40.0 - Benign prostatic hyperplasia without lower urinary tract symptoms (6) GERD (gastroesophageal reflux disease): Chronically on omeprazole Qualifiers: Esophagitis presence: without esophagitis Qualified Code(s): K21.9 - Gastro-esophageal reflux disease without esophagitis (7) NELLIE (obstructive sleep apnea): On CPAP (8) Chronic pain syndrome: Chronically on meloxicam, has appointment with Dr Villagran for neck pain, 1st visit 11/21 Plan Chronically on cetirizine and fluticasone for allergies Chronically on duloxetine Chronically has as needed albuterol Looks to have chronic kidney disease stage II based on laboratory studies today though could be from adjustments in medication related to preoperative status Thank you for consultation Post operative pain management as per orthopedics On usual postoperative antibiotics course status post tranexamic acid As is currently on Toradol have held home meloxicam Will continue patient's metoprolol, amlodipine, lisinopril Currently holding home hydrochlorothiazide Repeat electrolytes in the morning Hold oral diabetic agents until tolerating oral intake consistently postoperatively In the interim will manage with diabetes low-dose and is insulin na?ve continue home Flomax Continue PPI Continue home aspirin, as needed albuterol, duloxetine, Lyrica CPAP with sleep Dietitian consultation if they are able to see Mr. Zavala while he is here; otherwise can look at arranging outpatient Advance diet to cardiac consistent carbohydrate VTE prophylaxis: SCDs currently ordered, additional postoperative prophylaxis to be ordered GI Prophylaxis: PPI Telemetry: not currently indicated Fraire: not currently indicated Line(s): peripheral IVs Disposition plan: Home with outpatient follow up to orthopedics (Geri 09/29/23), primary care (Zachary 11/16/23), endocrine (Freddie 09/24/23), pain (Tyshawn 11/21) and ENT (Dl 11/21) Code Status: Full Code Supportive care otherwise Findings, concerns and plans were discussed with patient and his and they were given an opportunity to ask questions Consult Attestations 2 Medical Necessity Statement: as per attending and Moderate Time for a total of 60 minutes, includes reviewing past or interval history, examining/interviewing patient, placing orders and documenting encounter Diagnoses Status post reverse arthroplasty of left shoulder Z96.612 Benign hypertension I10 Type 2 diabetes mellitus without complication, without long-term current use of insulin E11.9 Diabetes mellitus retirement insulin use: without retirement use Diabetes mellitus complication status: without complication Mixed hyperlipidemia E78.2 Hyperlipidemia type: mixed hyperlipidemia Benign prostatic hyperplasia without lower urinary tract symptoms N40.0 Lower urinary tract symptom presence: symptoms absent Gastroesophageal reflux disease without esophagitis K21.9 Esophagitis presence: without esophagitis NELLIE (obstructive sleep apnea) G47.33 Chronic pain syndrome G89.4
[2023-09-14 15:21] LABS: Glucose Point of Care 279 mg/dL (70-110)
--- NOTE | 2023-09-14 15:35 | ANE.PACU2 ---
Inpatient post-anesthesia follow up: Airway intact: Yes Vital signs: Temperature 97.7 F Pulse Rate 75 Respiratory Rate 16 Blood Pressure 187/94 Pulse Oximetry 97 Oxygen Delivery Me thod Room Air Oxygen Flow Rate 6 Fraction of Inspir ed Oxygen Hydration adequate: Yes Nausea and vomiting: No Pain level: 1 Mental status: Baseline
[2023-09-14] MEDS: insulin regular-human 100 units/1 mL 10 UNIT IV (15:50)
[2023-09-14 16:45] LABS: Glucose Point of Care 271 mg/dL (70-110)
[2023-09-14] MEDS: sodium chloride 0.9% 1,000 ML 80 ML IV (16:45)
[2023-09-14] MEDS: acetaminophen 500 mg Tablet 1000 MG PO (16:46)
[2023-09-14] MEDS: fluticasone nasal spray 16gm Btl 1 SPRAY INTRANASAL (16:46)
[2023-09-14] MEDS: triamcinolone 0.1% cream 15 gm 1 APPLIC TOPICAL (17:48)
[2023-09-14] MEDS: calcium carb-vit d 600mg/400unit 1 Tablet 1 EACH PO (17:48)
[2023-09-14] MEDS: aspirin 325 mg EC Tablet PO (17:48)
[2023-09-14] MEDS: duloxetine 60 mg Capsule PO (17:48)
[2023-09-14] MEDS: docusate sodium 100 mg Capsule PO (17:48)
[2023-09-14] MEDS: iron polysaccharide complex 150 mg Capsule PO (17:48)
[2023-09-14] MEDS: insulin lispro 100 unit/1 mL SUBCUT ×2 (17:49→20:54)
[2023-09-14 19:59] LABS: Glucose Point of Care 379 mg/dL (70-110)
[2023-09-14] MEDS: tranexamic acid 1,000 MG/100 ML PREMIX 600 MG IV (20:08)
[2023-09-14] MEDS: pregabalin 150 mg Capsule PO (20:52)
[2023-09-14] MEDS: oxyCODONE 5 mg IR Tab/Cap PO (20:52)
[2023-09-15] VITALS: BP 136/78; PULSE 75; RESP 16; TEMP 36.6; O2SAT 96
[2023-09-15] MEDS: acetaminophen 500 mg Tablet 1000 MG PO ×2 (00:41→10:56)
--- NOTE | 2023-09-15 01:40 | PC.NURSE ---
Report received from NICOLASA Nichols.
[2023-09-15 04:27] VITALS: BP 146/79; PULSE 79; RESP 17; TEMP 36.6; O2SAT 97
[2023-09-15] MEDS: ceFAZolin 2,000 MG in sodium chloride 0.9% (plus) 50 ML 100 MG IV ×2 (04:33→10:58)
[2023-09-15] MEDS: sodium chloride 0.9% 1,000 ML 80 ML IV (04:33)
[2023-09-15 05:14] LABS: Basophils % 0.2 %; Hematocrit 37.1 % (37-53); Lymphocytes # 1.1 10^3/uL (0.8-4.8); Lymphocytes % 9.3 %; Mean Corpuscular HGB Conc 33.4 g/dL (30-55); Mean Corpuscular Hemoglobin 28.4 pg (27-33); Mean Corpuscular Volume 85.1 fl (82-101); Mean Platelet Volume 10.5 fL (7.4-10.4); Monocytes # 0.7 10^3/uL (0.2-0.9); Monocytes % 5.6 %; Neutrophils # 10.33 10^3/uL (1.8-7.7); Neutrophils % 84.7 %; Nucleated Red Blood Cells % 0 %; Platelet Count 187 10^3/cmm (157-399); Red Blood Count 4.36 10^6/uL (3.85-5.65); Red Cell Distribution Width 14.1 % (12.1-15.1)
[2023-09-15 05:33] LABS: Anion Gap 13.1 (5-19); Blood Urea Nitrogen 16 mg/dL (8-23); Calcium 8.7 mg/dL (8.5-10.5); Carbon Dioxide 26 mmol/L (22-29); Chloride 103 mmol/L (98-107); Glucose 232 mg/dL (65-115); Osmolality Calculated 295 mOsm/kg (285-295); Potassium 4.1 mmol/L (3.5-5.1); Sodium 138 mmol/L (136-145)
[2023-09-15 06:45] LABS: Glucose Point of Care 220 mg/dL (70-110)
[2023-09-15 08:00] VITALS: BP 150/70; PULSE 71; RESP 16; TEMP 36.6; O2SAT 95
--- NOTE | 2023-09-15 09:23 | PC.CHAP ---
Pastoral Care Encounter/Spiritual Assessment Type of Contact [] Declined monogram maker visit [] Patient/Family/Request visit [] Outpatient visit [] Follow-up visit [] Physician referral [] Code/Alert [x] Routine visit [] Staff referral [] Actively dying [] Patient sleeping [x] Family support [] [] Out of room [] Palliative care [] [] Receiving care in room [] Pre-surgical visit [] Trauma [] Long length of stay [] ICU visit [] Other: Relational/Emotional Strength [x] Patient feels connected with others/family/visitors/staff [] Distress [] Loneliness/isolation [] Abandonment Spirituality of Patient [x] Person of Tanisha [] Attends Taoist of their Tanisha [x] Believes in Prayer [] Reads Bible or Mandaen materials [] There are Spiritual issues to be addressed [employer] Interventions [x] Prayer [x Active listening [] Non-anxious presence [x] Spiritual/emotional support [] Crisis/trauma care [] Spiritual counseling [] Bereavement support [] Provided bereavement packet [] Provided Bible/devotional materials [] Provided toy/stuffed animal, coloring book to patient or family member [] Provided Communion [] Anointing/[place] [] Salvation [x] Completed spiritual assessment [] Other: Impact on Illness or Injury [] Angry [] Fearful [] Anxious [] Often cries [] Exhaustion [] Unable to work [] Unable to attend hinduism [] Unable to walk/stand [] Unable to read [] Unable to drive [] Unable to eat/drink [] Unable to sleep [] Unable to be with family [] Patient intubated [] Other: Summary Time spent with patient 5 min
[2023-09-15 10:26] LABS: Estmated Average Glucose 169; Hemoglobin A1C 7.5 % (4.0-6.0)
[2023-09-15 10:55] VITALS: RESP 18
[2023-09-15 10:55] LABS: Glucose Point of Care 217 mg/dL (70-110)
[2023-09-15] MEDS: aspirin 325 mg EC Tablet PO (10:55)
[2023-09-15] MEDS: metoprolol succinate ER (24 HR) 100 mg Tablet 200 MG PO (10:55)
[2023-09-15] MEDS: oxyCODONE 5 mg IR Tab/Cap PO (10:55)
[2023-09-15] MEDS: iron polysaccharide complex 150 mg Capsule PO (10:56)
[2023-09-15] MEDS: calcium carb-vit d 600mg/400unit 1 Tablet 1 EACH PO (10:56)
[2023-09-15] MEDS: tamsulosin 0.4 mg Capsule 0.8 MG PO (10:56)
[2023-09-15] MEDS: pantoprazole DR 40 mg Tablet PO (10:56)
[2023-09-15] MEDS: amlodipine 10 mg Tablet PO (10:56)
[2023-09-15] MEDS: lisinopril 20 mg Tablet 40 MG PO (10:56)
[2023-09-15] MEDS: fluticasone nasal spray 16gm Btl 1 SPRAY INTRANASAL (10:57)
[2023-09-15] MEDS: docusate sodium 100 mg Capsule PO (10:57)
[2023-09-15] MEDS: multivitamin therapeutic Tablet 1 TAB PO (10:57)
[2023-09-15] MEDS: pregabalin 150 mg Capsule PO (10:57)
[2023-09-15] MEDS: duloxetine 60 mg Capsule PO (10:57)
[2023-09-15] MEDS: triamcinolone 0.1% cream 15 gm 1 APPLIC TOPICAL (10:58)
[2023-09-15 12:00] VITALS: BP 187/94; PULSE 75; RESP 16; TEMP 36.5; O2SAT 97
--- NOTE | 2023-09-15 12:32 | PM.PN ---
Subjective Subjective: Patient is a 68-year-old male that is 1 day postop left reverse total shoulder arthroplasty. Patient is doing well and has no complaints. No acute events overnight. Pain is well-controlled. Vitals/I&O/Wt Last Vital Signs Temp 97.7 F 09/15/23 12:00 Pulse 75 09/15/23 12:00 Resp 16 09/15/23 12:00 BP 187/94 09/15/23 12:00 Pulse Ox 97 09/15/23 12:00 O2 Del Method Room Air 09/14/23 18:08 O2 Flow Rate 6 09/14/23 14:30 09/14/23 09/15/23 09/15/23 22:59 06:59 14:59 Intake Total 1110 / 2860 1094 / 3954 Output Total 0 / 50 Balance 1110 / 2810 1094 / 3904 Weight last 48 hrs Weight 224 lb Weight 224 lb Weight 214 lb Physical Exam Const: COMMON NORMALS: no acute distress and alert Resp: COMMON NORMALS: normal respiratory effort and No retractions Cardio: COMMON NORMALS: Peripheral pulses 2+ throughout PERIPHERAL PULSES: Peripheral pulses 2+ throughout Extremity: NARRATIVE EXTREMITY EXAM: Left shoulder?patient's dressing is dry and intact. He is in a UltraSling of the left shoulder. 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 No swelling or erythema seen around the surgical site. Neuro: SENSORIUM/ORIENTATION: Yes alert Skin: GENERAL SKIN EXAM: dry skin Data 09/15/23 04:36 09/15/23 04:36 A&P Assessment and plan (1) Status post reverse arthroplasty of left shoulder: Plan Plan: patient is 1 day postop left reverse total shoulder arthroplasty -Continue wearing ultra sling -Keep dressing on and intact -Labs reviewed -Aspirin 325 mg twice daily for postop blood clot control. patient is cleared for discharge from hospital from and Orthopedic standpoint. He is scheduled for follow-up appointment in 2 weeks at the orthopedic clinic.. Attestations Medical Necessity Statement*: Ongoing care for left reverse Total shoulder arthroplasty. Coding Level of Care Code Acute Code for Chg Fwd Diagnoses Status post reverse arthroplasty of left shoulder Z96.612
--- NOTE | 2023-09-15 12:42 | PM.DCS ---
Discharge Providers Date of Admission: 09/14/23 14:51 Date of Discharge: September 15, 2023 Attending Provider at Admission: Garret Nevarez DO Attending Provider at Discharge: Garret Nevarez DO Consults: Dr. Harrington?hospitalist Primary Care Provider: Kaylee Sharma MD Diagnoses at Discharge Discharge Diagnosis (1) Status post reverse arthroplasty of left shoulder: Status: Acute Reason for Visit Reason for Visit: M12.812 Brief History: Status post left reverse total shoulder arthroplasty Hospital Course Hospital Course Patient was brought to the preoperative area with plan for left reverse total shoulder arthroplasty seen evaluated by anesthesia once cleared for surgery taken back to the operative suite patient underwent anesthesia per anesthesia department he underwent a left reverse total shoulder arthroplasty without complications he was subsequently taken to PACU in stable condition recovering well in PACU and was admitted to the floor postoperatively. He received appropriate postoperative pain medication DVT prophylaxis, perioperative antibiotics. He was instructed nonweightbearing to left upper extremity maintain sling work with PT/OT. He progressed well postoperatively labs were monitored daily dressing was changed as needed maintain dyan dressing with good seal throughout the hospitalization. Internal medicine was on board to assist with medical management. Patient subsequently on postoperative day 1 was determined that patient was stable for discharge from an orthopedic standpoint. Patient was subsequently discharged home. Given appropriate discharge instructions as well as pain medication DVT prophylaxis. Follow-up in the orthopedic office in 2 weeks. Physical Exam Const: COMMON NORMALS: no acute distress and alert Resp: COMMON NORMALS: normal respiratory effort and No retractions Cardio: COMMON NORMALS: Peripheral pulses 2+ throughout PERIPHERAL PULSES: Peripheral pulses 2+ throughout Extremity: NARRATIVE EXTREMITY EXAM: Left shoulder?patient's dressing is dry and intact. He is in a UltraSling of the left shoulder. 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 No swelling or erythema seen around the surgical site. Axillary motor and sensations intact Neuro: SENSORIUM/ORIENTATION: Yes alert Skin: GENERAL SKIN EXAM: dry skin Discharge Data Studies Completed and Pending Completed Studies During Hospitalization Category Date Time Status XR shoulder LT min 2V* [id number] Routine Exams 09/14/23 14:19 Completed Pending at discharge Category Date Time Status Basic Metabolic Panel AM LABS Lab 09/16/23 04:00 Ordered Basic Metabolic Panel AM LABS Lab 09/17/23 04:00 Ordered Complete Blood Count w/Auto AM LABS Lab 09/16/23 04:00 Ordered Complete Blood Count w/Auto AM LABS Lab 09/17/23 04:00 Ordered Laboratory Results WBC 12.20 10^3/uL (3.29-11.43) H 09/15/23 04:36 RBC 4.36 10^6/uL (3.85-5.65) 09/15/23 04:36 Hgb 12.40 g/dL (11.27-16.99) 09/15/23 04:36 Hct 37.1 % (37-53) 09/15/23 04:36 MCV 85.1 fl (82-101) 09/15/23 04:36 MCH 28.4 pg (27-33) 09/15/23 04:36 MCHC 33.4 g/dL (30-55) 09/15/23 04:36 RDW 14.1 % (12.1-15.1) 09/15/23 04:36 Plt Count 187 10^3/cmm (157-399) 09/15/23 04:36 MPV 10.5 fL (7.4-10.4) H 09/15/23 04:36 Neut % (Auto) 84.7 % 09/15/23 04:36 Lymph % (Auto) 9.3 % 09/15/23 04:36 [place] % (Auto) 5.6 % 09/15/23 04:36 Eos % (Auto) 0.0 % 09/15/23 04:36 Baso % (Auto) 0.2 % 09/15/23 04:36 Neut # (Auto) 10.33 10^3/uL (1.8-7.7) H 09/15/23 04:36 Lymph # (Auto) 1.1 10^3/uL (0.8-4.8) 09/15/23 04:36 [place] # (Auto) 0.7 10^3/uL (0.2-0.9) 09/15/23 04:36 Eos # (Auto) 0.0 10^3/uL (0.0-0.8) 09/15/23 04:36 Baso # (Auto) 0.0 10^3/uL (0.0-0.1) 09/15/23 04:36 Nucleated RBC % (auto) 0 % 09/15/23 04:36 Nucleated RBCs # 0.0 /100WBC 09/15/23 04:36 Sodium 138 mmol/L (136-145) 09/15/23 04:36 Potassium 4.1 mmol/L (3.5-5.1) 09/15/23 04:36 Chloride 103 mmol/L (98-107) 09/15/23 04:36 Carbon Dioxide 26 mmol/L (22-29) 09/15/23 04:36 Anion Gap 13.1 (5-19) 09/15/23 04:36 BUN 16 mg/dL (8-23) 09/15/23 04:36 Creatinine 1.1 mg/dL (0.7-1.2) 09/15/23 04:36 GFR Calculation 67.0 mL/min (90-130) L 09/15/23 04:36 Glucose 232 mg/dL (65-115) H 09/15/23 04:36 POC Glucose 217 mg/dL (70-110) H 09/15/23 10:48 Estimat Average Glucose 169 09/15/23 04:36 Hemoglobin A1c 7.5 % (4.0-6.0) H 09/15/23 04:36 Calculated Osmolality 295 mOsm/kg (285-295) 09/15/23 04:36 Calcium 8.7 mg/dL (8.5-10.5) 09/15/23 04:36 Blood Type B Negative 09/14/23 08:52 Rho(D) Type Negative 09/14/23 08:52 Antibody Screen Negative 09/14/23 08:52 Vitals Last Vital Signs Temp 97.7 F 09/15/23 12:00 Pulse 75 09/15/23 12:00 Resp 16 09/15/23 12:00 BP 187/94 09/15/23 12:00 Pulse Ox 97 09/15/23 12:00 O2 Del Method Room Air 09/14/23 18:08 O2 Flow Rate 6 09/14/23 14:30 Discharge Plan Discharge Patient Disposition: Home Condition: Stable Prescriptions: Continued magnesium citrate 100 mg capsule 100 mg PO DAILY fluticasone propionate 50 mcg/actuation spray,suspension 1 spray intranasal Q12H Qty: 15.8 2RF Rx Instructions: administer into each nostril tamsulosin 0.4 mg capsule 0.8 mg PO DAILY 90 Days Qty: 180 1RF sitagliptin phosphate 25 mg tablet 25 mg PO DAILY 90 Days Qty: 90 1RF Rx Instructions: 340B omeprazole 20 mg capsule,delayed release(DR/EC) 20 mg PO DAILY 90 Days Qty: 90 1RF metoprolol succinate 200 mg tablet extended release 24 hr 200 mg PO DAILY 90 Days Qty: 90 1RF lisinopril 40 mg tablet 40 mg PO DAILY 90 Days Qty: 90 1RF hydrochlorothiazide 25 mg tablet 25 mg PO QAM 90 Days Qty: 90 1RF duloxetine 60 mg capsule,delayed release(DR/EC) 60 mg PO BID 90 Days Qty: 180 1RF amlodipine 10 mg tablet 10 mg PO DAILY 90 Days Qty: 90 1RF pregabalin 150 mg capsule 150 mg PO TID 30 Days Qty: 90 3RF triamcinolone acetonide 0.1 % cream 1 applic topical BID Qty: 80 0RF albuterol sulfate [ProAir HFA] 90 mcg/actuation HFA aerosol inhaler 2 puff inhalation QID PRN (Reason: shortness of breath or wheezing) 30 Days Qty: 18 5RF metformin 500 mg tablet extended release 24 hr 1,000 mg PO BID Qty: 360 3RF Rx Instructions: Take 2 tablets by mouth twice a day. cetirizine 10 mg tablet 10 mg PO DAILY PRN (Reason: allergy symptoms) 90 Days Qty: 90 0RF Discontinued aspirin 81 mg tablet,delayed release (DR/EC) 81 mg PO DAILY meloxicam 15 mg tablet 15 mg PO DAILY 90 Days Qty: 90 1RF Rx Instructions: WITH FOOD No Action acarbose 50 mg tablet 50 mg PO TID 30 Days Qty: 90 1RF pioglitazone [Actos] 30 mg tablet 30 mg PO DAILY Qty: 90 0RF Discharge Orders: Discharge Order (Routine); Ordered 09/15/23 Ordered By: Park Chong Referrals: Garret Nevarez DO [Physician] - 09/29/23 3:45 pm Mark Frazier MD [Physician] - 09/21/23 8:15 am () Discharge Diet: Regular Discharge Activity: Limit activity as instructed and As per PT/OT instructions Patient Instructions: Cephalexin (By mouth), Aspirin (By mouth), Ondansetron (By mouth) (Zofrgwendolyn, ZofrLili [place]re[place]), Shoulder Arthroplasty (DC) Activity Restrictions/Additional Instructions: Orthopedic discharge instructions: Keep dressing on and intact. You have a Dyan dressing with battery pack on it. The battery pack lasts for about 5 to 7 days and when battery goes you can remove dressing. If you are going to shower detach battery pack from dressing and then reattach after shower. Keep arm in shoulder sling for the next 4-6 weeks. To prevent frozen shoulder you can take arm out of sling and let it hang down and do pendulum swings. No active Range of motion. No weight-bear to the operative extremity. Ice and elevate as needed for pain and swelling Take pain medication as prescribed Take antinausea medication as needed Take aspirin as prescribed for blood clot prevention No baths or soaks Follow-up in the orthopedic office in 2 weeks Contact the office for any questions or concerns Discharge Attestations Time Spent in Discharge Care*: less than 30 min Quality Metrics Clinical Quality Measures [ No reported AMI, CVA or VTE this stay] Coding Level of Care Code Acute Code for Chg Fwd Diagnoses Status post reverse arthroplasty of left shoulder Z96.612
--- NOTE | 2023-09-15 14:09 | PC.NURSE ---
Discharge Note Patient discharged to home via private vehicle accompanied by . Discharge instructions reviewed with patient and/or senior sales representative. Mobile pharmacy medications and/or prescriptions provided. Belongings/home medications returned.
[2023-09-15 14:10] VITALS: BP 187/94; PULSE 75; RESP 16; TEMP 36.5; O2SAT 97
== END 2023-09-15 14:10 | disposition home or self-care (01) ==
LOC: MEDSURG 14:52
PROVIDERS: Internal Medicine; Admitting Provider Student in an Organized Health Care Education/Training Program; PCP Family Medicine; Visit Provider Student in an Organized Health Care Education/Training Program
PROC: (CPT 23472; principal; 2023-09-14 12:10)
DX: M19.012 Primary osteoarthritis, left shoulder (principal); G47.33 Obstructive sleep apnea (adult) (pediatric); K21.9 Gastro-esophageal reflux disease without esophagitis; N40.0 Benign prostatic hyperplasia without lower urinary tract symptoms; E11.9 Type 2 diabetes mellitus without complications; Z79.82 Long term (current) use of aspirin; I10 Essential (primary) hypertension; E78.2 Mixed hyperlipidemia; G89.4 Chronic pain syndrome
CPT/HCPCS: 23472; 36415; 36416; 73030; 80048; 82962; 83036; 85025; 86850; 86900; 93005; 96372; 97166; C1713; C1776; G0378; J0131; J0690; J1100; J1815; J1885; J2405; J2704; J2795; J3010; J3370; J3490; J7030; J7120

== ENCOUNTER → 2023-09-29 08:17 | Outpatient (BNVA) | payer MEDICARE, SELFPAY | PROVIDERS: PCP Family Medicine; Visit Provider Student in an Organized Health Care Education/Training Program | DX: Z96.612 Presence of left artificial shoulder joint (principal); E11.9 Type 2 diabetes mellitus without complications; E78.2 Mixed hyperlipidemia; Z78.9 Other specified health status; Z79.84 Long term (current) use of oral hypoglycemic drugs | CPT/HCPCS: 73030; 99213; 99214 ==

== ENCOUNTER → 2023-10-20 11:40 | Outpatient (BNVA) | payer MEDICARE, SELFPAY | PROVIDERS: PCP Family Medicine; Visit Provider Student in an Organized Health Care Education/Training Program | DX: Z96.612 Presence of left artificial shoulder joint (principal) | CPT/HCPCS: 73030; 99024 ==

== ENCOUNTER 2023-11-02 06:00 | Outpatient (RCR) | payer MEDICARE, SELFPAY | END 2023-11-29 23:59 | disposition home or self-care (01) | LOC: SPT 06:00 | PROVIDERS: Visit Provider Student in an Organized Health Care Education/Training Program | DX: Z98.890 Other specified postprocedural states (principal) | CPT/HCPCS: 97110; 97140; 97162 ==

== ENCOUNTER 2023-11-10 18:00 | Emergency (ER) | payer MEDICARE, SELFPAY ==
[2023-11-10 18:01] VITALS: BP 158/89; PULSE 67; RESP 18; TEMP 36.8; O2SAT 99
--- NOTE | 2023-11-10 18:20 | XRR_ITS ---
PROCEDURE INFORMATION: Exam: XR Cervical Spine Exam date and time: 11/10/2023 6:25 PM Age: 68 years old Clinical indication: Neck pain TECHNIQUE: Imaging protocol: Radiologic exam of the cervical spine. Views: 2 or 3 views. COMPARISON: MR cervical spin wo con* [id number] 06/17/2023 8:04 AM FINDINGS: Bones/joints: Evaluation of the cervical spine is limited on the lateral image by overlapping of the shoulder. No evidence of vertebral height loss on the frontal image. Suggestion of at least mild multilevel degenerative endplate irregularity, sclerosis and disc space narrowing. Moderate multilevel facet arthropathy throughout the cervical spine. Straightened cervical curvature. Symmetric atlantodental intervals on the odontoid image. Soft tissues: No prevertebral soft tissue widening. XR/XR cervical spine 3V* [id number] IMPRESSION: 1. Moderate multilevel cervical spondylosis without clear-cut acute plain radiographic abnormality within the limitations of the study. Multilevel foraminal and canal stenosis reported on prior MR performed May 2023. 2. Straightening cervical curvature likely due to positioning or muscle spasm.
--- NOTE | 2023-11-10 18:25 | ED_ITS ---
Documented by User: HAWA Andersen 11/10/23 20:27 HPI - Extremity Problem General: Chief complaint: Extremity Injury, Upper Stated complaint: neck pain going down left arm Time Seen by Provider: 11/10/23 18:11 Source: patient Mode of arrival: ambulatory Limitations: no limitations History of Present Illness: Patient is 68-year-old male presents to the emergency department complaining of neck pain onset greater than a month. Patient had left shoulder replacement surgery in August, and states that he subsequently developed some left muscular neck pain that radiates down the lateral aspect of his left arm. He denies any numbness weakness or tingling of the left upper extremity, but states he thinks he can feel it starting to get that way. Everything he has tried for his pain does not seem to help. He reports that he has a history of multiple back surgeries due to stenosis, and states this pain feels similar and that he knows he has some cervical stenosis. He denies any other symptoms at this time. Onset (ago): month(s) Pain Consistency: constant Location: left and upper extremity Radiation: distal Relieving factors: nothing Exacerbating factors: range of motion Associated symptoms: Deny chest pain, fever(s) or rash Context: recent surgery/procedure Review of Systems General: Reports: 10 or more systems reviewed and unremarkable except in HPI and below Const: Denies: fever(s), chills or fatigue Eyes: Denies: change in vision ENMT: Denies: throat pain, ear or mastoid pain or nasal discharge Card: Denies: chest pain, palpitations, swelling of feet/ankles or lightheadedness Resp: Denies: dyspnea, productive cough or wheezing GI: Denies: abdominal pain, nausea, vomiting, diarrhea or constipation : Denies: flank pain, difficulty urinating, dysuria or urinary frequency Musc: Reports: neck pain and extremity pain (LUE); Denies: back pain or joint pain Skin/Breast: Denies: rash Neuro: Denies: headache(s), numbness in extremities or weakness in extremities PFSH ED PFSH: Medical History NELLIE (obstructive sleep apnea) Erectile dysfunction Multinodular goiter (nontoxic) Hyperlipidemia Statin intolerance Rotator cuff arthropathy of left shoulder Chronic back pain greater than 3 months duration Allergic rhinitis GERD (gastroesophageal reflux disease) BPH (benign prostatic hyperplasia) Type 2 diabetes mellitus Chronic pain syndrome Benign hypertension Surgical History Status post reverse arthroplasty of left shoulder (09/14/23) H/O spinal fusion H/O knee surgery Previous back surgery Family History Father Cancer Mother Diabetes Sister Diabetes Brother Diabetes Cancer Denies family history of Hypertension Stroke Social History Smoking and tobacco/nicotine status: never used tobacco/nicotine Alcohol intake: never Substance/Drug Use: never Physical Exam Const: COMMON NORMALS: no acute distress, patient oriented x3 and no limitations GENERAL APPEARANCE: cooperative, comfortable and well developed ORIENTATION/CONSCIOUSNESS: Yes awake, Yes oriented to person, Yes oriented to place and Yes oriented to time HENMT: COMMON NORMALS: normocephalic, atraumatic and hearing grossly normal bilaterally HEAD & SCALP: normocephalic and atraumatic Eye: COMMON NORMALS: EOMs intact bilaterally and conjunctivae normal CONJUNCTIVA: Yes conjunctivae normal Neck/C-Spine: COMMON NORMALS: full ROM, supple and no JVD CERVICAL SPINE: Yes cervical ROM normal, No Cervical spine tenderness and Yes Paracervical muscle tenderness left (Mild) Resp: COMMON NORMALS: normal respiratory effort, No retractions, No use of accessory muscles and clear to auscultation bilaterally AUSCULTATION: clear to auscultation bilaterally Cardio: COMMON NORMALS: no JVD, regular rate, regular rhythm, No clicks present (Cardio), No murmurs present (Cardio) and No rub (Cardio) RATE: regular rate RHYTHM: regular rhythm Back/Pelvis: COMMON NORMALS: thoraco-lumbar ROM normal Extremity: COMMON NORMALS: normal to inspection, full ROM and capillary refill normal LEFT UPPER EXTREMITY: Yes shoulder joint (Well-healed postoperative scar) Left shoulder joint: Yes inspection, Yes palpation (Nontender), Yes ROM (Intact and painless) and Yes neurovascular exam (Intact) Neuro: COMMON NORMALS: patient oriented x3, moves all extremities, no focal motor deficits and no sensory deficits noted SENSORIUM/ORIENTATION: Yes oriented to person, Yes oriented to place and Yes oriented to time Psych: COMMON NORMALS: mental status grossly normal and Normal thought process present THOUGHT PROCESS: Normal thought process present Skin: COMMON NORMALS: no rashes or lesions noted GENERAL SKIN EXAM: no rashes or lesions noted Course Vital Signs: Vital signs: Vital Signs Temperature 98.2 F 11/10/23 18:01 Pulse Rate 62 11/10/23 20:11 Respiratory Rate 18 11/10/23 20:11 Blood Pressure 151/90 11/10/23 20:11 Pulse Oximetry 97 11/10/23 20:11 Oxygen Delivery Me thod Room Air 11/10/23 18:43 MDM - Extremity (Nontraumatic) Medical Decision Making This patient was seen and evaluated in the emergency department today due to greater than a month of left paracervical muscular pain with radiation to the left shoulder. Reports shoulder replacement surgery to the left shoulder in August, which is when he began to notice the neck pain. He is currently in physical therapy shoulder. Vitals normal on arrival. X-ray of the cervical neck shows moderate multilevel cervical spondylosis, of which the patient was aware that he had and was previously imaged in May last year. This appears to have no change from previous, and I will refer the patient back to Ortho for any necessary further imaging or workup. I gave the patient IM Toradol, Decadron, and Norflex in the ED, the patient states he feels a little better. I will send prescription for Toradol and prednisone for the patient to take prior to following up with Ortho later this week. Patient agrees with this plan and will be discharged home. Lab Data Radiology Impressions Cervical Spine X-Ray 11/10/23 18:20 IMPRESSION: 1. Moderate multilevel cervical spondylosis without clear-cut acute plain radiographic abnormality within the limitations of the study. Multilevel foraminal and canal stenosis reported on prior MR performed May 2023. 2. Straightening cervical curvature likely due to positioning or muscle spasm. All radiology interpretation(s) finalized by discharge Discharge Plan Discharge Patient Disposition: Home Clinical Impression: Cervical radicular pain Condition: Stable Prescriptions: New prednisone 20 mg tablet 60 mg PO ONCE 5 Days Qty: 15 0RF ketorolac 10 mg tablet 10 mg PO Q8H PRN (Reason: pain) Qty: 30 0RF No Action magnesium citrate 100 mg capsule 100 mg PO DAILY fluticasone propionate 50 mcg/actuation spray,suspension 1 spray intranasal Q12H Qty: 15.8 2RF Rx Instructions: administer into each nostril tamsulosin 0.4 mg capsule 0.8 mg PO DAILY 90 Days Qty: 180 1RF sitagliptin phosphate 25 mg tablet 25 mg PO DAILY 90 Days Qty: 90 1RF Rx Instructions: 340B omeprazole 20 mg capsule,delayed release(DR/EC) 20 mg PO DAILY 90 Days Qty: 90 1RF metoprolol succinate 200 mg tablet extended release 24 hr 200 mg PO DAILY 90 Days Qty: 90 1RF lisinopril 40 mg tablet 40 mg PO DAILY 90 Days Qty: 90 1RF hydrochlorothiazide 25 mg tablet 25 mg PO QAM 90 Days Qty: 90 1RF duloxetine 60 mg capsule,delayed release(DR/EC) 60 mg PO BID 90 Days Qty: 180 1RF amlodipine 10 mg tablet 10 mg PO DAILY 90 Days Qty: 90 1RF triamcinolone acetonide 0.1 % cream 1 applic topical BID Qty: 80 0RF albuterol sulfate [ProAir HFA] 90 mcg/actuation HFA aerosol inhaler 2 puff inhalation QID PRN (Reason: shortness of breath or wheezing) 30 Days Qty: 18 5RF metformin 500 mg tablet extended release 24 hr 1,000 mg PO BID Qty: 360 3RF Rx Instructions: Take 2 tablets by mouth twice a day. cetirizine 10 mg tablet 10 mg PO DAILY PRN (Reason: allergy symptoms) 90 Days Qty: 90 0RF acarbose 50 mg tablet 50 mg PO TID 30 Days Qty: 90 1RF pioglitazone [Actos] 30 mg tablet 30 mg PO DAILY Qty: 90 0RF pregabalin 150 mg capsule 150 mg PO TID 30 Days Qty: 90 0RF Discharge Orders: Discharge ED (Routine); Ordered 11/10/23 Ordered By: Brock Ochoa Discharge Diet: Usual diet Discharge Activity: Increase activity as tolerated Patient Instructions: Cervical Radiculopathy (ED) Activity Restrictions/Additional Instructions: Toradol and prednisone as prescribed. Follow-up with orthopedics. Continue physical therapy as scheduled. Return with any new or worsening symptoms. Coding Level of Care Code ED Manager Risk Management for Chg Fwd Documented by User: Carlos Mckenzie DO 11/11/23 06:31 HPI - Extremity Problem General: Chief complaint: Extremity Injury, Upper Stated complaint: neck pain going down left arm Time Seen by Provider: 11/10/23 18:11 PFSH ED PFSH: Medical History NELLIE (obstructive sleep apnea) Erectile dysfunction Multinodular goiter (nontoxic) Hyperlipidemia Statin intolerance Rotator cuff arthropathy of left shoulder Chronic back pain greater than 3 months duration Allergic rhinitis GERD (gastroesophageal reflux disease) BPH (benign prostatic hyperplasia) Type 2 diabetes mellitus Chronic pain syndrome Benign hypertension Surgical History Status post reverse arthroplasty of left shoulder (09/14/23) H/O spinal fusion H/O knee surgery Previous back surgery Family History Father Cancer Mother Diabetes Sister Diabetes Brother Diabetes Cancer Denies family history of Hypertension Stroke Social History Smoking and tobacco/nicotine status: never used tobacco/nicotine Alcohol intake: never Substance/Drug Use: never Course Vital Signs: Vital signs: Vital Signs Temperature 98.2 F 11/10/23 18:01 Pulse Rate 62 11/10/23 20:11 Respiratory Rate 18 11/10/23 20:11 Blood Pressure 151/90 11/10/23 20:11 Pulse Oximetry 97 11/10/23 20:11 Oxygen Delivery Me thod Room Air 11/10/23 18:43 MDM - Extremity (Nontraumatic) Medical Decision Making This patient was seen and evaluated in the emergency department today due to greater than a month of left paracervical muscular pain with radiation to the left shoulder. Reports shoulder replacement surgery to the left shoulder in August, which is when he began to notice the neck pain. He is currently in physical therapy shoulder. Vitals normal on arrival. X-ray of the cervical neck shows moderate multilevel cervical spondylosis, of which the patient was aware that he had and was previously imaged in May last year. This appears to have no change from previous, and I will refer the patient back to Ortho for any necessary further imaging or workup. I gave the patient IM Toradol, Decadron, and Norflex in the ED, the patient states he feels a little better. I will send prescription for Toradol and prednisone for the patient to take prior to following up with Ortho later this week. Patient agrees with this plan and will be discharged home. Chart reviewed Lab Data Radiology Impressions Cervical Spine X-Ray 11/10/23 18:20 IMPRESSION: 1. Moderate multilevel cervical spondylosis without clear-cut acute plain radiographic abnormality within the limitations of the study. Multilevel foraminal and canal stenosis reported on prior MR performed May 2023. 2. Straightening cervical curvature likely due to positioning or muscle spasm. Discharge Plan Discharge Patient Disposition: Home Clinical Impression: Cervical radicular pain Condition: Stable Prescriptions: New prednisone 20 mg tablet 60 mg PO ONCE 5 Days Qty: 15 0RF ketorolac 10 mg tablet 10 mg PO Q8H PRN (Reason: pain) Qty: 30 0RF No Action magnesium citrate 100 mg capsule 100 mg PO DAILY fluticasone propionate 50 mcg/actuation spray,suspension 1 spray intranasal Q12H Qty: 15.8 2RF Rx Instructions: administer into each nostril tamsulosin 0.4 mg capsule 0.8 mg PO DAILY 90 Days Qty: 180 1RF sitagliptin phosphate 25 mg tablet 25 mg PO DAILY 90 Days Qty: 90 1RF Rx Instructions: 340B omeprazole 20 mg capsule,delayed release(DR/EC) 20 mg PO DAILY 90 Days Qty: 90 1RF metoprolol succinate 200 mg tablet extended release 24 hr 200 mg PO DAILY 90 Days Qty: 90 1RF lisinopril 40 mg tablet 40 mg PO DAILY 90 Days Qty: 90 1RF hydrochlorothiazide 25 mg tablet 25 mg PO QAM 90 Days Qty: 90 1RF duloxetine 60 mg capsule,delayed release(DR/EC) 60 mg PO BID 90 Days Qty: 180 1RF amlodipine 10 mg tablet 10 mg PO DAILY 90 Days Qty: 90 1RF triamcinolone acetonide 0.1 % cream 1 applic topical BID Qty: 80 0RF albuterol sulfate [ProAir HFA] 90 mcg/actuation HFA aerosol inhaler 2 puff inhalation QID PRN (Reason: shortness of breath or wheezing) 30 Days Qty: 18 5RF metformin 500 mg tablet extended release 24 hr 1,000 mg PO BID Qty: 360 3RF Rx Instructions: Take 2 tablets by mouth twice a day. cetirizine 10 mg tablet 10 mg PO DAILY PRN (Reason: allergy symptoms) 90 Days Qty: 90 0RF acarbose 50 mg tablet 50 mg PO TID 30 Days Qty: 90 1RF pioglitazone [Actos] 30 mg tablet 30 mg PO DAILY Qty: 90 0RF pregabalin 150 mg capsule 150 mg PO TID 30 Days Qty: 90 0RF Discharge Orders: Discharge ED (Routine); Ordered 11/10/23 Ordered By: Brock Ochoa Discharge Diet: Usual diet Discharge Activity: Increase activity as tolerated Patient Instructions: Cervical Radiculopathy (ED) Activity Restrictions/Additional Instructions: Toradol and prednisone as prescribed. Follow-up with orthopedics. Continue physical therapy as scheduled. Return with any new or worsening symptoms. Coding Level of Care Code ED Manager Risk Management for Anel Quick
[2023-11-10] MEDS: ketorolac 60 mg/2 mL INJ IM (18:37)
[2023-11-10] MEDS: orphenadrine 30 mg/mL Inj 2 mL 60 MG IM (18:38)
[2023-11-10] MEDS: dexamethasone 10 mg/mL INJ 8 MG IM (18:40)
[2023-11-10 18:43] VITALS: BP 158/89; PULSE 63; O2SAT 96
[2023-11-10 20:11] VITALS: BP 151/90; PULSE 62; RESP 18; O2SAT 97
== END 2023-11-10 20:12 | disposition home or self-care (01) ==
PROVIDERS: Emergency Provider Physician Assistant
DX: M54.12 Radiculopathy, cervical region (principal); Z79.84 Long term (current) use of oral hypoglycemic drugs; E78.5 Hyperlipidemia, unspecified; E11.9 Type 2 diabetes mellitus without complications; I10 Essential (primary) hypertension
CPT/HCPCS: 72040; 96372; 99284; J1100; J1885; J2360

== ENCOUNTER → 2023-11-16 14:20 | Outpatient (BNVA) | payer MEDICARE, SELFPAY | PROVIDERS: Visit Provider Family Medicine | DX: I10 Essential (primary) hypertension (principal); G89.4 Chronic pain syndrome; E11.9 Type 2 diabetes mellitus without complications; K21.9 Gastro-esophageal reflux disease without esophagitis; Z98.1 Arthrodesis status; M54.9 Dorsalgia, unspecified; G89.29 Other chronic pain; N40.0 Benign prostatic hyperplasia without lower urinary tract symptoms; R53.83 Other fatigue; Z12.5 Encounter for screening for malignant neoplasm of prostate | CPT/HCPCS: 82607; 84443; 86618; 86666; 86757; G0103 ==

== ENCOUNTER → 2023-11-17 08:47 | Outpatient (BNVA) | payer MEDICARE, SELFPAY | PROVIDERS: Visit Provider Anesthesiology Pain Medicine | DX: G89.29 Other chronic pain; M48.02 Spinal stenosis, cervical region; M47.22 Other spondylosis with radiculopathy, cervical region | CPT/HCPCS: 99214 ==

== ENCOUNTER 2023-11-30 06:00 | Outpatient (RCR) | payer MEDICARE, SELFPAY | END 2023-12-17 23:59 | disposition home or self-care (01) | LOC: SPT 06:00 | PROVIDERS: Visit Provider Student in an Organized Health Care Education/Training Program | DX: Z98.890 Other specified postprocedural states (principal) | CPT/HCPCS: 97110; 97140 ==

== ENCOUNTER → 2023-12-01 11:27 | Outpatient (BNVA) | payer MEDICARE, SELFPAY | PROVIDERS: Visit Provider Otolaryngology | DX: E04.2 Nontoxic multinodular goiter (principal); H90.3 Sensorineural hearing loss, bilateral; Z96.612 Presence of left artificial shoulder joint; M48.02 Spinal stenosis, cervical region | CPT/HCPCS: 73030; 99213; 99214 ==

== ENCOUNTER 2023-12-03 07:45 | Outpatient (CLI) | payer MEDICARE, SELFPAY ==
--- NOTE | 2023-12-03 08:00 | US_ITS ---
WS: [id number] THYROID ULTRASOUND HISTORY: Goiter COMPARISON: 11/12/2022 Right lobe: 2.4 cm x 2.4 cm x 4.7 cm (w x ap x l). Volume: 13.3 cm3. Mildly enlarged thyroid. Reidentified is the hypoechoic nodule in the posterior mid gland. This hypoe choic nodule measures 1.1 x 1.0 x 1.3 cm. Not increased in size since the prior study. The shape is s imilar. No echogenic foci. There are additional small colloid cyst within the gland which are stable. Left lobe: 1.9 cm x 1.8 cm x 5.6 cm (w x ap x l). Volume: 8.8 cm3. Hypoechoic lobulated nodule in the lower pole measures 1.1 x 0.7 x 1.5 cm. This may be 2 adjacent hyp oechoic nodules together. As per history this is been previously biopsied. Not significantly increase d since in size. No echogenic foci. Isthmus: 0.7 cm. IMPRESSION: 1. Stable thyroid ultrasound since 11/12/2022. Recommend continued yearly evaluation by ultrasound. 2. Mid RIGHT thyroid nodule (TI-RADS 4). Based upon the TI-RADS criteria moderately suspicious but s till less than 1.5 cm. As before this may be difficult to biopsy due to its very posterior position. 3. The additional colloid cyst within the RIGHT thyroid and the LEFT thyroid nodule are also stable.
== END 2023-12-03 07:46 | disposition home or self-care (01) ==
LOC: RAD 07:46
PROVIDERS: Visit Provider Otolaryngology
DX: E04.2 Nontoxic multinodular goiter (principal)
CPT/HCPCS: 76536

== ENCOUNTER → 2023-12-10 10:53 | Outpatient (BNVA) | payer MEDICARE, SELFPAY | PROVIDERS: Visit Provider Orthopaedic Surgery | DX: M54.2 Cervicalgia (principal); M47.22 Other spondylosis with radiculopathy, cervical region | CPT/HCPCS: 72050; 99214 ==

== ENCOUNTER → 2023-12-16 15:12 | Outpatient (BNVA) | payer MEDICARE, SELFPAY | PROVIDERS: Visit Provider Otolaryngology | DX: E04.2 Nontoxic multinodular goiter (principal); H90.3 Sensorineural hearing loss, bilateral | CPT/HCPCS: 99213 ==

== ENCOUNTER → 2024-01-21 12:46 | Outpatient (BNVA) | payer MEDICARE, SELFPAY | PROVIDERS: Visit Provider Orthopaedic Surgery | DX: M47.22 Other spondylosis with radiculopathy, cervical region (principal) | CPT/HCPCS: 99213 ==

== ENCOUNTER → 2024-03-18 14:02 | Outpatient (BNVA) | payer MEDICARE, SELFPAY | PROVIDERS: PCP Family Medicine; Visit Provider Nurse Practitioner | DX: R52 Pain, unspecified (principal); Z79.899 Other long term (current) drug therapy | CPT/HCPCS: 87426 ==

== ENCOUNTER → 2024-03-29 10:26 | Outpatient (BNVA) | payer MEDICARE, SELFPAY | PROVIDERS: PCP Family Medicine; Visit Provider Internal Medicine | DX: E11.65 Type 2 diabetes mellitus with hyperglycemia (principal); R53.83 Other fatigue; Z78.9 Other specified health status; Z79.84 Long term (current) use of oral hypoglycemic drugs | CPT/HCPCS: 36415; 80053; 80061; 82044; 83036; 83721; 84439; 84443; 99214 ==

== ENCOUNTER → 2024-04-01 15:34 | Outpatient (BNVA) | payer MEDICARE, SELFPAY | PROVIDERS: PCP Family Medicine; Visit Provider Nurse Practitioner | DX: R30.0 Dysuria (principal); N39.0 Urinary tract infection, site not specified | CPT/HCPCS: 81000; 87086 ==

== ENCOUNTER 2024-04-07 12:41 | Outpatient (CLI) | payer MEDICARE, SELFPAY ==
--- NOTE | 2024-04-07 12:46 | XRR_ITS ---
PROCEDURE INFORMATION: Exam: XR Abdomen Exam date and time: 04/07/2024 12:58 PM Age: 69 years old Clinical indication: Other: Hematuria; Prior surgery; Surgery date: 6+ months; Surgery type: Prostate; Patient HX: UTI x1 week ago, pain while urinating; Additional info: R31.9 - hematuria, unspecified TECHNIQUE: Imaging protocol: Radiologic exam of the abdomen. Views: Frontal supine view of the abdomen. 1 View. COMPARISON: CR XR lumbar spine min 4V [id number] 03/05/2023 2:55 PM FINDINGS: Tubes, catheters and devices: There is a neurostimulator device with lead tips projecting over the lower thoracic spinal canal unchanged. Lungs: Visualized lung bases are clear. Gastrointestinal tract: Moderate degree of retained stool throughout the large bowel likely reflecting some degree of constipation. Bones/joints: Multilevel degenerative changes are present throughout the lower thoracic and lumbar spine with prominent anterolateral endplate osteophytes. Extensive postoperative changes mid-lower lumbar spine with spinal instrumentation. Other findings: No suspicious calcifications detected along the course of the tract. XR/XR KUB [id number] IMPRESSION: No suspicious renal calcifications detected.
== END 2024-04-07 12:42 | disposition home or self-care (01) ==
PROVIDERS: PCP Family Medicine; Visit Provider Nurse Practitioner
DX: R31.9 Hematuria, unspecified (principal)
CPT/HCPCS: 74018; 81000

== ENCOUNTER → 2024-04-13 08:49 | Outpatient (BNVA) | payer MEDICARE, SELFPAY | PROVIDERS: PCP Family Medicine; Visit Provider Internal Medicine | DX: R53.83 Other fatigue; Z78.9 Other specified health status; E11.65 Type 2 diabetes mellitus with hyperglycemia; Z79.84 Long term (current) use of oral hypoglycemic drugs | CPT/HCPCS: 99214 ==

== ENCOUNTER → 2024-04-28 10:57 | Outpatient (BNVA) | payer MEDICARE, SELFPAY | PROVIDERS: PCP Family Medicine; Visit Provider Family Medicine | DX: R30.0 Dysuria (principal); R53.83 Other fatigue | CPT/HCPCS: 81000; 85025; 86618; 86666; 86757; 87086 ==

== ENCOUNTER → 2024-05-24 10:15 | Outpatient (BNVA) | payer MEDICARE, SELFPAY | PROVIDERS: PCP Family Medicine; Visit Provider Family Medicine | DX: Z12.5 Encounter for screening for malignant neoplasm of prostate (principal); E11.9 Type 2 diabetes mellitus without complications; E04.2 Nontoxic multinodular goiter; R53.82 Chronic fatigue, unspecified; M25.50 Pain in unspecified joint; E03.9 Hypothyroidism, unspecified | CPT/HCPCS: 84439; 84443; 84481; 85651; 86038; 86140; G0103 ==

== ENCOUNTER → 2024-10-03 09:48 | Outpatient (BNVA) | payer MEDICARE, SELFPAY | PROVIDERS: PCP Family Medicine; Visit Provider Family Medicine | DX: E11.9 Type 2 diabetes mellitus without complications (principal); I10 Essential (primary) hypertension | CPT/HCPCS: 80048; 83036 ==

== ENCOUNTER → 2025-01-04 09:56 | Outpatient (BNVA) | payer MEDICARE, SELFPAY | PROVIDERS: PCP Family Medicine; Visit Provider Family Medicine | DX: E11.9 Type 2 diabetes mellitus without complications (principal) | CPT/HCPCS: 80048; 80061; 83036; 83721 ==

== ENCOUNTER → 2025-03-07 13:47 | Outpatient (BNVA) | payer MEDICARE, SELFPAY | PROVIDERS: PCP Family Medicine; Visit Provider Internal Medicine | DX: I10 Essential (primary) hypertension (principal); I1A.0 Resistant hypertension; E11.9 Type 2 diabetes mellitus without complications; Z79.84 Long term (current) use of oral hypoglycemic drugs; Z79.85 Long-term (current) use of injectable non-insulin antidiabetic drugs; R07.9 Chest pain, unspecified; R06.02 Shortness of breath | CPT/HCPCS: 36415; 84439; 84443; 93005; 99204 ==

== ENCOUNTER → 2025-03-09 08:42 | Outpatient (BNVA) | payer MEDICARE, SELFPAY | PROVIDERS: PCP Family Medicine; Visit Provider Family Medicine | DX: M19.011 Primary osteoarthritis, right shoulder (principal); R93.7 Abnormal findings on diagnostic imaging of other parts of musculoskeletal system; M77.8 Other enthesopathies, not elsewhere classified | CPT/HCPCS: 73030 ==

== ENCOUNTER → 2025-04-05 10:00 | Outpatient (BNVA) | payer MEDICARE, SELFPAY | PROVIDERS: PCP Family Medicine; Visit Provider Family Medicine | DX: Z12.5 Encounter for screening for malignant neoplasm of prostate (principal); I10 Essential (primary) hypertension; E11.9 Type 2 diabetes mellitus without complications; G89.4 Chronic pain syndrome; K90.49 Malabsorption due to intolerance, not elsewhere classified; Z98.890 Other specified postprocedural states; K21.9 Gastro-esophageal reflux disease without esophagitis; Z98.1 Arthrodesis status; M54.9 Dorsalgia, unspecified; R25.2 Cramp and spasm; M25.511 Pain in right shoulder | CPT/HCPCS: 80053; 83036; 86003; 86008; G0103 ==

== ENCOUNTER 2025-04-06 06:59 | Outpatient (CLI) | payer MEDICARE, SELFPAY ==
--- NOTE | 2025-04-06 07:15 | USCV_ITS ---
Tim Zavala Age: 70 Gender: M : 1955 Exam Date: 04/06/2025 07:24 Ordering Phys: Kedar Downing M.D ([email or web address]) Technologist: [place] [facility] [place]: cp sob BP: 130 / 80 HR: 70 Rhythm: Sinus Technical Quality: MEASUREMENTS (Male / Female) Normal Values 2D ECHO LV Diastolic Diameter PLAX 4.4 cm 4.2 - 5.9 / 3.9 - 5.3 cm IVS Diastolic Thickness 1.3 cm 0.6 - 1.0 / 0.6 - 0.9 cm IVS Systolic Thickness 2.0 cm LVPW Diastolic Thickness 1.7 cm 0.6 - 1.0 / 0.6 - 0.9 cm LVPW Systolic Thickness 1.8 cm LVOT Diameter 2.0 cm LV Ejection Fraction 2D Teich 64.1 % LV Ejection Fraction MOD 4C 60.0 % LV Ejection Fraction MOD 2C 70.7 % LV Ejection Fraction 2C AL 71.0 % LA Diameter 3.0 cm RA Systolic Volume 4C AL 61.2 ml RA Systolic Volume 4C MOD 57.0 ml Aorta at Sinotubular Diameter 3.0 cm M-MODE LA Ao Ratio MM 0.9 AV Cusp Separation MM 2.6 cm DOPPLER AV Peak Velocity 122.0 cm/s LVOT Peak Velocity 88.0 cm/s AV Area Cont Eq vti 3.2 cm squared AV Area Cont Eq pk 2.3 cm squared MV Peak Velocity 130.0 cm/s MV Area PHT 2.9 cm squared Mitral E to A Ratio 0.7 TR Peak Velocity 136.0 cm/s TR Peak Gradient 7.4 mmHg TV Peak E Velocity 69.0 cm/s PV Peak Velocity 82.0 cm/s FINDINGS Left Ventricle Left ventricle is normal in size. LV systolic function is normal with EF of 55-60%. No regional wall abnormalities are seen. Grade 1 diastolic dysfunction Right Ventricle Normal in size and function Right Atrium Normal in size Left Atrium Normal in size Mitral Valve Mild mitral annular calcification. Mild mitral regurgitation Aortic Valve Structurally normal aortic valve. No significant stenosis. Tricuspid Valve Insufficient TR jet to evaluate RVSP. Pulmonic Valve Not well visualized Pericardium Normal Aorta Normal in size IVC Not well visualized CONCLUSIONS LV systolic function is normal with EF of 55-60% Grade 1 diastolic dysfunction Mild mitral regurgitation No comparison studies are available. Kedar Downing MD (Electronically Signed) Final Date: 12 April 2025 09:17 S
== END 2025-04-06 07:00 | disposition home or self-care (01) ==
LOC: RAD 07:00
PROVIDERS: PCP Family Medicine; Visit Provider Internal Medicine
DX: R06.02 Shortness of breath (principal); I34.0 Nonrheumatic mitral (valve) insufficiency; I34.9 Nonrheumatic mitral valve disorder, unspecified; I34.81 Nonrheumatic mitral (valve) annulus calcification; I50.30 Unspecified diastolic (congestive) heart failure
CPT/HCPCS: 93306

== ENCOUNTER → 2025-04-12 15:08 | Outpatient (BNVA) | payer MEDICARE, SELFPAY | PROVIDERS: PCP Family Medicine; Visit Provider Student in an Organized Health Care Education/Training Program | DX: M25.511 Pain in right shoulder (principal); G89.29 Other chronic pain; M12.811 Other specific arthropathies, not elsewhere classified, right shoulder | CPT/HCPCS: 20610; 73030; 99214; J3301; J9999 ==

== ENCOUNTER → 2025-05-24 14:35 | Outpatient (BNVA) | payer MEDICARE, SELFPAY | PROVIDERS: PCP Family Medicine; Visit Provider Student in an Organized Health Care Education/Training Program | DX: M25.562 Pain in left knee (principal); M17.12 Unilateral primary osteoarthritis, left knee; M25.569 Pain in unspecified knee | CPT/HCPCS: 73560; 73565; 99214 ==

== ENCOUNTER 2025-06-01 09:46 | Outpatient (CLI) | payer MEDICARE, SELFPAY ==
--- NOTE | 2025-06-01 10:00 | CT_ITS ---
WS: [id number] CT LEFT KNEE, NONCONTRAST [facility] TECHNIQUE: Noncontrast CT of the LEFT knee to include the LEFT hip and ankle. CLINICAL INFORMATION: M17.12 - Unilateral primary osteoarthritis, left knee DLP: 956.[address] scans at [facility] use at least one of these dose optimization techniques: automated exposure control; mA and/or kV adjustment per patient size (includes targeted exams where dose is matched to clinical indication); or iterative reconstruction. FINDINGS: Advanced tricompartment arthritis LEFT knee. Hypertrophic patella. Hypertrophic changes along the joint line. Moderate suprapatellar effusion. Lobulated popliteal cyst with a few loose bodies. Vascular calcification. Enlarged prostate measuring 4.[address]/CT knee LT [facility] [id number] IMPRESSION: Images obtained for preoperative purposes.
== END 2025-06-01 09:47 | disposition home or self-care (01) ==
LOC: RAD 09:47
PROVIDERS: PCP Family Medicine; Visit Provider Student in an Organized Health Care Education/Training Program
DX: M17.12 Unilateral primary osteoarthritis, left knee (principal); N40.0 Benign prostatic hyperplasia without lower urinary tract symptoms; Z01.818 Encounter for other preprocedural examination
CPT/HCPCS: 73700

== ENCOUNTER → 2025-06-06 12:49 | Outpatient (BNVA) | payer MEDICARE, SELFPAY | PROVIDERS: PCP Family Medicine; Visit Provider Nurse Practitioner Family | DX: I10 Essential (primary) hypertension (principal); I1A.0 Resistant hypertension; E11.9 Type 2 diabetes mellitus without complications; Z79.4 Long term (current) use of insulin; Z79.84 Long term (current) use of oral hypoglycemic drugs; G47.33 Obstructive sleep apnea (adult) (pediatric); Z78.9 Other specified health status | CPT/HCPCS: 99214 ==

== ENCOUNTER → 2025-06-16 13:00 | Outpatient (BNVA) | payer MEDICARE, SELFPAY | PROVIDERS: PCP Family Medicine; Visit Provider Nurse Practitioner | DX: Z01.818 Encounter for other preprocedural examination (principal); M17.12 Unilateral primary osteoarthritis, left knee; E11.9 Type 2 diabetes mellitus without complications; I10 Essential (primary) hypertension; G47.33 Obstructive sleep apnea (adult) (pediatric); K21.9 Gastro-esophageal reflux disease without esophagitis; Z79.4 Long term (current) use of insulin; Z79.84 Long term (current) use of oral hypoglycemic drugs; F12.90 Cannabis use, unspecified, uncomplicated | CPT/HCPCS: 80053; 81000; 83036; 85025 ==

== ENCOUNTER 2025-06-27 10:40 | Outpatient (CLI) | payer MEDICARE, SELFPAY ==
[2025-06-27 11:22] LABS: Hematocrit 45.4 % (37-53); Hemoglobin 15.40 g/dL (11.27-16.99); Mean Corpuscular HGB Conc 33.9 g/dL (30-55); Mean Corpuscular Hemoglobin 28.8 pg (27-33); Mean Corpuscular Volume 84.9 fl (82-101); Nucleated Red Blood Cells % 0 %; Platelet Count 258 10^3/cmm (157-399); Red Blood Count 5.35 10^6/uL (3.85-5.65); White Blood Count 9.51 10^3/uL (3.29-11.43)
[2025-06-27 11:26] LABS: Glucose Urine UA Negative (Normal); Nitrate Urine Negative (Negative); Specific Gravity, Urine 1.025 (1.005-1.030)
[2025-06-27 11:31] LABS: Add Urine Microscopic? YES
[2025-06-27 11:45] LABS: Alanine Aminotransferase 42 U/L (0-41); Albumin Level 4.7 g/dL (3.5-5.2); Alkaline Phosphatase 102 U/L (40-130); Anion Gap 17.4 (5-19); Aspartate Amino Transferase 32 U/L (0-40); Blood Urea Nitrogen 24 mg/dL (8-23); Calcium 10.0 mg/dL (8.5-10.5); Carbon Dioxide 27 mmol/L (22-29); Chloride 98 mmol/L (98-107); Globulin 3.4 g/dL (1.3-4.6); Glucose 148 mg/dL (65-115); Osmolality Calculated 293 mOsm/kg (285-295); Potassium 4.4 mmol/L (3.5-5.1); Sodium 138 mmol/L (136-145); Total Protein 8.1 g/dL (6.6-8.7)
[2025-06-27 12:13] LABS: UA Slide Review UA Slide Review Perf
== END 2025-06-27 10:41 | disposition home or self-care (01) ==
LOC: LAB 10:42
PROVIDERS: PCP Family Medicine; Visit Provider Student in an Organized Health Care Education/Training Program
DX: Z01.818 Encounter for other preprocedural examination (principal)
CPT/HCPCS: 36415; 80053; 81001; 85025

== ENCOUNTER 2025-07-17 09:15 | Observation (INO) | payer MEDICARE, SELFPAY ==
[2025-07-17] VITALS (17 sets, daily range): BP systolic 139–158; BP diastolic 75–110; PULSE 79–107; RESP 14–21; TEMP 36.1–36.6; O2SAT 92–98; BMI 31.1; BMI 29.3
--- NOTE | 2025-07-17 06:17 | ANES.PREANE2 ---
Pre-Anesthetic Assessment Height/Weight: Height 5 ft 7 in Preop Diagnosis: Osteoarthritis of the knee Operation Date: 07/17/25 07:00 Proposed Procedures p LEFT Lionel Robot Total Knee Arthroplasty(Left) - Garret Nevarez, DO Was Beta Aileen taken within 24 hours: Yes Was Clonidine taken within 24 hours: N/A Social No alcohol and No tobacco Exam alert, oriented x 3, clear to auscultation bilaterally and regular rate & rhythm Airway Submandibular: within normal limits Cervical ROM: Other (Neck fusion) Mallampati: Class III Dentition: full Anesthetic Plan ASA status: 3 Anesthesia: General Other: No prior issues with anesthesia NPO since yesterday evening Alpha gal noted History of GERD, on omeprazole Hypertension on amlodipine, chlorthalidone and metoprolol Type 2 diabetes, on insulin. Preop BS NELLIE, wears CPAP Cervical spinal stenosis, s/p spinal fusion Patient also has lumbar fusion and spinal cord stimulator that he has turned off Prior aspiration noted on chart but patient is unaware of any episodes of this Labs reviewed 06/27/2025 acceptable for procedure today Echo performed in March showing EF of 55 to 60% with no RWMA Plan for general anesthesia with peripheral nerve block Medications/Allergies Home Medications ?Medication ?Instructions ?Recorded ?Confirmed ?Last Taken ?Type blood sugar diagnostic (Accu-Chek #100 ea 04/13/24 06/29/25 Unknown Rx Guide test strips) blood-glucose meter (Accu-Chek #1 ea 04/13/24 06/29/25 Unknown Rx Guide Glucose Meter) lancets 31 gauge (Comfort Touch #100 ea 04/13/24 06/29/25 Unknown Rx Ultra Thin Lancets) loratadine 10 mg tablet (Claritin) 10 mg PO DAILY 04/28/24 07/17/25 1 Week Ago History ~07/10/25 metformin 500 mg tablet,extended 1,000 mg (2 x 500 mg) PO BID #360 10/03/24 07/13/25 07/16/25 Rx release 24 hr tabs albuterol sulfate 90 mcg/actuation 2 puff inhalation QID PRN 01/04/25 07/13/25 07/13/25 Rx aerosol inhaler (Ventolin HFA) shortness of breath or wheezing 30 days #8.5 grams amlodipine 10 mg tablet 10 mg PO DAILY 90 days #90 tabs 01/04/25 07/13/25 07/10/25 Rx fluticasone propionate 50 See Rx Instructions .Route 01/04/25 07/17/25 2 Weeks Ago Rx mcg/actuation nasal .COMPLEX #16 grams ~07/03/25 spray,suspension metoprolol succinate 50 mg 50 mg PO DAILY #90 tabs 03/07/25 07/13/25 07/17/25 03:30 Rx tablet,extended release 24 hr duloxetine 60 mg capsule,delayed 60 mg PO BID 90 days #180 caps 04/05/25 07/13/25 07/16/25 Rx release insulin glargine 100 unit/mL (3 10 unit (0.1 mL) SUBCUT DAILY #3 mL 04/05/25 07/13/25 1 Week Ago Rx mL) subcutaneous pen (Lantus ~07/06/25 Solostar U-100 Insulin) lisinopril 40 mg tablet 40 mg PO DAILY 90 days #90 tabs 04/05/25 07/13/25 07/15/25 Rx meloxicam 15 mg tablet 15 mg PO DAILY 90 days #90 tabs 04/05/25 07/17/25 5 Days Ago Rx ~07/12/25 omeprazole 20 mg capsule,delayed 20 mg PO DAILY 90 days #90 caps 04/05/25 07/13/25 07/17/25 03:30 Rx release pregabalin 150 mg capsule 150 mg PO TID 30 days #90 caps 04/05/25 07/13/25 07/16/25 Rx tizanidine 2 mg tablet 2 mg PO .at bedtime PRN muscle 04/05/25 07/17/25 2 Weeks Ago Rx spasticity 30 days #30 tabs ~07/03/25 chlorthalidone 25 mg tablet 25 mg PO DAILY #30 tabs 05/31/25 07/13/25 07/10/25 Rx mirtazapine 15 mg tablet 15 mg PO .qhs 30 days #30 tabs 06/01/25 07/17/25 Unknown Rx acarbose 50 mg tablet 50 mg PO TID 07/13/25 07/13/25 07/13/25 History Allergies Allergy/AdvReac Type Severity Reaction Status Date / Time Alpha-Gal Allergy Severe dirreaha Verified 07/13/25 14:35 ([id number]-8,3-Gala celecoxib (From Celebrex) AdvReac Mild ADR-NAUSEA Verified 07/13/25 14:35 Eolekas-FNQ-KjO Reductase AdvReac Mild ADR-Cramping Verified 07/13/25 14:35 Inhibitor (Ppaqvlx-Qqv-Jas of the Reductase Inhibitor) Muscles [facility] Anesthesia Medical History Psychiatric care NELLIE (obstructive sleep apnea) Type 2 diabetes mellitus GERD (gastroesophageal reflux disease) BPH (benign prostatic hyperplasia) Benign hypertension Erectile dysfunction Multinodular goiter (nontoxic) Hyperlipidemia Statin intolerance Rotator cuff arthropathy of left shoulder Chronic back pain greater than 3 months duration Allergic rhinitis Chronic pain syndrome Surgical History Status post reverse arthroplasty of left shoulder (09/14/23) H/O spinal fusion H/O knee surgery Previous back surgery Family History Father Cancer Mother Diabetes Sister Diabetes Brother Diabetes Cancer Denies family history of Hypertension Stroke Social History Smoking and tobacco/nicotine status: current every day tobacco/nicotine user (marijuana) Alcohol intake: never Substance/Drug Use: current Other substance/drug use details: gummies Data Anesthesia Cardiac Studies: Echocardiogram 04/06/25
[2025-07-17] MEDS: acetaminophen 1,000 MG/100 ML PIGGYBACK 400 MG IV ×2 (06:36→17:26)
[2025-07-17 06:54] LABS: Hematocrit 47.3 % (37-53); Hemoglobin 16.60 g/dL (11.27-16.99); Mean Corpuscular HGB Conc 35.1 g/dL (30-55); Mean Corpuscular Hemoglobin 29.2 pg (27-33); Mean Corpuscular Volume 83.3 fl (82-101); Nucleated Red Blood Cells % 0 %; Platelet Count 284 10^3/cmm (157-399); Red Blood Count 5.68 10^6/uL (3.85-5.65); White Blood Count 11.84 10^3/uL (3.29-11.43)
--- NOTE | 2025-07-17 06:58 | W.PM.OPSFHP ---
Same Day Surgery H&P Indication for Procedure/HPI DATE OF PROCEDURE: July 17, 2025 CHIEF COMPLAINT/INDICATIONFOR SURGICAL PROCEDURE: Left knee djd PREOP DIAGNOSIS: Osteoarthritis of the knee left PLANNED PROCEDURE: Operation Date: 07/17/25 07:00 Proposed Procedures p LEFT Lionel Robot Total Knee Arthroplasty(Left) - Garret Nevarez DO Medications/Allergies* Home Medications ?Medication ?Instructions ?Recorded ?Confirmed ?Type loratadine 10 mg tablet (Claritin) 10 mg PO DAILY 04/28/24 07/17/25 History acarbose 50 mg tablet 50 mg PO TID 07/13/25 07/13/25 History Allergies/Adverse Reactions Allergy/AdvReac Type Severity Reaction Status Date / Time Alpha-Gal Allergy Severe dirreaha Verified 07/13/25 14:35 (Jmszszucs-Oirfo-7,3-Gala celecoxib (From Celebrex) AdvReac Mild ADR-NAUSEA Verified 07/13/25 14:35 Msnndsz-QNT-GvP Reductase AdvReac Mild ADR-Cramping Verified 07/13/25 14:35 Inhibitor (Yhfftzq-Rmn-Sxl of the Reductase Inhibitor) Muscles Current Medications: Generic Name Dose Route Start Last Admin Trade Name Freq PRN Reason Stop Dose Admin Sodium Chloride 1,000 mls @ 30 mls/hr 07/17/25 06:00 07/17/25 06:37 Sodium Chloride 0.9% IV 07/18/25 05:59 30 mls/hr .Q24H DAVID Administration Pertinent History/Comorbid Conditions* Medical History (Updated 04/15/25 @ 14:38 by Garret Nevarez DO) Psychiatric care NELLIE (obstructive sleep apnea) Type 2 diabetes mellitus GERD (gastroesophageal reflux disease) BPH (benign prostatic hyperplasia) Benign hypertension Erectile dysfunction Multinodular goiter (nontoxic) Hyperlipidemia Statin intolerance Rotator cuff arthropathy of left shoulder Chronic back pain greater than 3 months duration Allergic rhinitis Chronic pain syndrome Surgical History (Updated 11/11/23 @ 00:01 by SLIM Gardner) Status post reverse arthroplasty of left shoulder (09/14/23) H/O spinal fusion H/O knee surgery Previous back surgery Family History (Updated 02/21/21 @ 10:26 by Xochitl Restrepo LPN) Diabetes Mother Sister Brother Cancer Father Brother Denies family history of Hypertension Stroke Social History Smoking and tobacco/nicotine status: current every day tobacco/nicotine user (marijuana) Alcohol intake: never Substance/Drug Use: current Other substance/drug use details: gummies Pertinent Exam Findings alert, oriented x 3, operative site marked and procedure specific exam findings please refer to anesthesia preop note for heart and lung findings please see ortho exam from 05/24/25 listed below: Left knee Exam: ROM 5-115 degrees TTP over retropatellar space Patellar crepitus with ROM Medial joint line tenderness to palpation Lateral joint line tenderness to palpation Mild joint effusion Negative Lionel's, pain noted Negative Roberto's Negative anterior drawer 5 degrees of Varus malalignment, correctable on examStable Varus and Valgus stress Gross motor sensory intact Smooth hip ROM, No pain Recommendations Risks and benefits of procedure reviewed and Patient/family agree to proceed Surgery/Procedure today Other Plans: Plan to proceed to the OR today for left total knee arthroplasty?Lionel robotic assisted patient send no change in health since previous office visit and preoperative evaluation his A1c was 7.7 at this point time no wounds injected his knee in the past 90 days he is ready to proceed with surgical intervention for a left total knee arthroplasty?Lionel robotic assisted he understands Cecizemet's procedure risk benefits complication alternative surgical nonsurgical treatment options. Understanding risk of surgery patient like to proceed with surgical invention. All questions answered at this time. Coding Level of Care Code Acute Code for Anel Quick
[2025-07-17] MEDS: ceFAZolin 2,000 MG in sodium chloride 0.9% (plus) 50 ML 100 MG IV ×3 (07:03→21:42)
[2025-07-17 07:12] LABS: Anion Gap 14.9 (5-19); Blood Urea Nitrogen 15 mg/dL (8-23); Calcium 9.9 mg/dL (8.5-10.5); Carbon Dioxide 30 mmol/L (22-29); Chloride 97 mmol/L (98-107); Glucose 177 mg/dL (65-115); Osmolality Calculated 291 mOsm/kg (285-295); Potassium 3.9 mmol/L (3.5-5.1); Sodium 138 mmol/L (136-145)
[2025-07-17] MEDS: tranexamic acid 1,000 mg/10mL SDV 1000 MG IV (07:20)
[2025-07-17] MEDS: tranexamic acid 1,000 mg/10mL SDV 1000 MG XX (08:00)
[2025-07-17] MEDS: ROPivacaine 0.2% Premix 100 mL 200 MG INTRA-ARTI (08:00)
--- NOTE | 2025-07-17 09:16 | P.BOP_ITS ---
Date of Procedure: 07/17/2025 Surgeon: Garret Nevarez DO Electronic Test Technician(s): Alton Nevarez PA-C Procedure(s) performed: Left total knee arthroplasty?Lionel robotic assisted Findings of the procedure(s): underwent procedure as planned without issues or complications, taken to recovery in stable condition Estimated blood loss: 25 mL Specimen(s) removed: Tibia femur and patellar bone cuts removed Post-operative diagnosis: Left knee DJD
--- NOTE | 2025-07-17 09:17 | P.OP_ITS ---
Operative Report Date of procedure: July 17, 2025 Surgeon: Garret Nevarez DO Procedure: Preoperative diagnosis: Left knee degenerative joint disease Post-op diagnosis: Same Procedure done: Left total knee arthroplasty, cemented?robotic assisted Chris Implants: [place] triathlon size 6 femur CR cemented?left [place] triathlon size? 6 tibia universal baseplate cemented [place] triathlon symmetric patella size 36 mm [place] triathlon polyethylene 10mm Surgeon: Garret Nevarez DO Estimated blood?loss: 25 mL Tourniquet 79mins IV fluids: 1200 mL Urine output: 100 mL Complications: None Condition: stable Disposition: floor Brief History: Patient is a 70-year-old female with with chronic?left knee degenerative joint disease.? Patient has been worked up in the outpatient setting in the orthopedic office at this point time through shared decision making given? zwlh-vx-osul arthritis as well as failed conservative treatment, and pt would?like to proceed with a?left total knee arthroplasty.? Through shared decision making elected to proceed with surgical intervention for?left total knee arthroplasty-chris robotic assisted.? We talked about continued conservative treatment and surgical intervention as far as the risk benefits complications alternatives surgical and nonsurgical treatment options.? At this point time understanding patient risks with surgery he agrees to proceed with surgical intervention.? Once again? risk with surgery include but are not?limited to make it better make it worse blood clot, heart attack, stroke, on the table, infection, injury to nerves or vessels, persistent pain, arthrofibrosis, implant failure.? Understanding these risks patient agrees to proceed with surgical intervention consent was obtained in the preop.? All questions answered. Procedure: Patient was seen and evaluated in the preoperative holding area.? Consent was reviewed and signed with patient with plan for?left total knee arthroplasty.? All questions answered.? Correct extremity marked.? Patient seen and evaluated by the anesthesia department and once cleared for surgery was taken back to the operative suite.? Patient was placed into a supine position on the OR table.? All bony prominences were well-padded.? Patient was appropriately secured to the bed.? Patient underwent anesthesia per the anesthesia department.? Patient received spinal anesthesia and? Fraire catheter was placed.? A nonsterile tourniquet was applied to the?left thigh.? At this point in time a final timeout performed.? Patient received appropriate preoperative antibiotics and TXA. Next the?left?lower extremity was then prepped and draped in standard orthopedic fashion. Esmarch tourniquet was used exsanguinate the?left?lower extremity.? Tourniquet was insufflated to 250 mmHg. A standard anterior incision was made over midline of the knee.? Sharp scalpel excision through skin and subcutaneous tissue full-thickness skin flaps were made.? Fascia was elevated off of the extensor retinaculum was stable with med ial parapatellar arthrotomy was then made.? The performed standard sequential releases.? Immediately on entry into the joint patient was found to have severe eburnated bone and tricompartmental arthritic changes noted.? With significant osteophyte formation.? Next the the patella was then stuffed and the knee was then flexed.?? Kevin was placed superiorly around the anterior aspect of the femur this was freed of synovium and I subsequently then placed by 2 femur pins to establish my femur arrays for the Chris robot.? These were then placed bicortically and? femur array was then appropriately secured with appropriate visualization.? Next attention was turned towards the tibial rays.? These were then drilled sequentially bicortically in parallel fashion and intraincisional.? I then placed my guide as well as my tibial array on in place.? This was appropriately secured and had excellent visualization with the Chris robot.? Next the tibial checkpoint as well as femur checkpoint were then placed.? At this point time I then subsequently established my head center as well as my medial?lateral malleoli as well as my checkpoints.? Next utilizing standard Chris technology I then mapped out the appropriate points and confirmation points around the femur as well as the tibia in standard fashion.? Once this was then done I then removed all osteophytes in preparation for dynamic testing.? All osteophytes were removed as well as I removed the ACL and the PCL was excised due to its significant tearing and degeneration noted.? At this point time the knee was brought into full extension and we performed our standard evaluation of our gap balancing stressing his?ligaments and extension as well as flexion appropriate adjustments were made to have appropriate gap balancing in both flexion and extension.? This plan for final cuts were able to correct 11 degree varus in 10 degree flexion contracture to ligamentous tolerances within 1 to 2 degrees of varus. we get a preoperative plan evaluating our implants which was a size 6 femur and a size 6 tibia.? Next we brought in the Chris robot and sequentially made our femur cuts.? All excess bony cuts were then removed.? Finally we made our tibial cut.? Once this was done a standard PCL retractor was then placed into this position I excised the medial and?lateral meniscus.? The tibial cut was then subsequently removed all excess bony debris was removed.? I then utilized a?lamina back filler operator and remove the posterior osteophytes.? At this point time sized the tibia and confirmed this was a size 6.? I utilized our blunt probe to establish rotation of tibial implant.? Once this was done I then placed my tibia size 6 trial in appropriate position and then subsequently placed tibial pins to hold this into place and trialed up to a size 10 mm poly as well as a size 6 femur which was appropriately impacted in place knee was then subsequently brought into extension. Trials were then assessed,? this was stable with varus valgus stress in extension as well as had symmetrical translation when brought into flexion demonstrating symmetrical gaps. I had excellent balance gaps in flexion and extension with varus and valgus stresses. Patient was able to achieve full flexion and range of motion to greater than 115 on flexion. at this point I was satisfied with these implants these were then verified and opened on the back table size 6 tibia, size 6 femur,? size 10 mm polythickness.? We did confirm appropriate gap balancing and stresses as well as alignment utilizing? Chris and were satisfied with this plan.? ?At this point time with my trials in place I then towel clip the patella everted this made appropriate measurements subsequently utilizing freehand technique performed by patellar resurfacing this was confirmed to be appropriate resection and subsequently sized to be a 36 mm symmetric.? My drill peg guides were then clamped and appropriate position and appropriate position in the patella for appropriate tracking and parallel with the joint.? Pegs were drilled trial implant was placed and the knee was then subsequently ranged and found to have excellent patellar tracking.? Femur pegs were then drilled.? At this point time all of our trial implants were removed.? All checkpoints as well as guidepins and arrays were removed and appropriate counts made.?Satisfied with our tibial placement rotation I then utilized the keel punch and prepped the tibia.? The wound bed? was thoroughly irrigated and dried and prepped for cementation.? Cement was mixed on the back table.? Once cement was ready this was then covered onto the tibia and the tibial baseplate was then impacted and all excess cement was removed.? Next the polyethylene was then impacted into place on the tibial baseplate.? Next cement was placed onto the femur as well as under the femur implants and impacted in to place and all excess cement was extruded and removed.? Knee was taken into full extension? to clear all excess cement was removed.? Warm saline was placed over the joint.? I then towel clip patella and dried for cementation. cemented the patella into place.? This was all clamped and the cement was allowed to cure.? Thorough irrigation performed with pulse?lavage.? I then placed my periarticular injection while the cement was curing.? Once cured the knee was taken through range of motion and had excellent stability and gaps were balanced in flexion and extension.? Tourniquet was then deflated. hemostasis satisfactory with electrocautery.? Vancomycin powder was placed in wound bed for antibiotic infection prophylaxis next I then subsequently closed the capsule with Ethibond suture as well as a running strata fix suture.? Knee was then taken through range of motion 30 times.? Next the skin was then closed in?layered fashion of running stratifix sutures of deep and subcutenous tissue and skin.? ?closed in flexion and christine over incision, incision was covered with ian, with ABDs soft roll and Torres wrap.? Patient was then awakened from anesthesia and taken to PACU in stable condition. Disposition: Patient taken to PACU in stable condition will be admitted to the floor for pain control PT/OT weight-bear as tolerated?left?lower extremity dressing changes as needed, DVT prophylaxis. Pain control. Patient will receive appropriate postoperative antibiotics. patient will be seen today by the internal medicine team for medical management.? Patient will follow up with the office in 2 weeks.? Patient understands agrees with current plan.? All questions answered.
--- NOTE | 2025-07-17 09:38 | XR_ITS ---
WS: [id number] XR knee LT 1-2V 14311 REASON FOR EXAM: post L TKA FINDINGS: Total left knee arthroplasty. Components of the arthroplasty are intact and in proper position and alignment. No focal bone abnormality. XR/XR knee LT 1-2V 18095 IMPRESSION: Total left knee arthroplasty without abnormality.
--- NOTE | 2025-07-17 09:50 | PM.PACU ---
PACU note Narrative: Patient is a 70-year-old male who just underwent a left total knee arthroplasty. Pt transferred to PACU in stable condition. Dressing is dry. pt is awake and alert. pt can wiggle toes and plantarflex and dorsiflex foot. pt able to perform straight leg raise, Femoral nerve intact. Distal pulses are palpable toes are warm and well-perfused. Cap refill is normal and under 2 seconds. Sensation to foot is intact. Pain is controlled. Exam: awake Disposition: admitted
--- NOTE | 2025-07-17 10:07 | ANE.PACU2 ---
Inpatient post-anesthesia follow up: Airway intact: Yes Vital signs: Temperature 97.9 F Pulse Rate 89 Respiratory Rate 18 Blood Pressure 144/87 Pulse Oximetry 93 Oxygen Delivery Me thod Room Air Oxygen Flow Rate Fraction of Inspir ed Oxygen Hydration adequate: Yes Nausea and vomiting: No Pain level: 1 Mental status: Baseline
--- NOTE | 2025-07-17 10:17 | PC.NURSE ---
1015 - accepted into room 270 with Lauren RN at side BP 150/76 - 93% 99 pulse temp 97.5
--- NOTE | 2025-07-17 10:44 | PM.HP ---
Providers/Chief Complaint Admitting Physician: Garret Nevarez DO Primary Care Provider: Kaylee Sharma MD Chief Complaint: M17.12 History of Present Illness Tim Zavala is a 70 year old male with prior medical history of HTN, HLD, NELLIE, BPH, DM, HL, ED, cervical stenosis, statin intolerance, left and right shoulder arthroplasty; rotator cuff, spinal fusion, anxiety, and arthritis presenting with complaints of knee pain. 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 Tolerated without complication. Will admit to the hospital service for further evaluation and treatment. In the ED, BP 147/86, HR 92, RR 18, T97.2, O2 93% on room air. WBC 11.84, Hgb 16.60, PLT 284. Potassium, sodium, WNL. Bun and creatinine unremarkable. 07/17/2025; left total knee arthroplasty?without abnormality. Review of Systems Const: Denies: fever(s), chills or change in weight ENMT: Denies: throat pain or ear or mastoid pain Card: Denies: chest pain, palpitations or syncope Resp: Denies: dyspnea or non-productive cough GI: Denies: abdominal pain, nausea, vomiting or diarrhea : Denies: dysuria or urinary frequency Skin/Breast: Denies: rash, pruritus or sores Neuro: Denies: confusion or Slurred speech present Medications/Allergies Home Medications ?Medication ?Instructions ?Recorded ?Confirmed ?Last Taken ?Type blood sugar diagnostic (Accu-Chek #100 ea 04/13/24 07/17/25 Unknown Rx Guide test strips) blood-glucose meter (Accu-Chek #1 ea 04/13/24 07/17/25 Unknown Rx Guide Glucose Meter) lancets 31 gauge (Comfort Touch #100 ea 04/13/24 07/17/25 Unknown Rx Ultra Thin Lancets) loratadine 10 mg tablet (Claritin) 10 mg PO DAILY 04/28/24 07/17/25 1 Week Ago History ~07/10/25 metformin 500 mg tablet,extended 1,000 mg (2 x 500 mg) PO BID #360 10/03/24 07/13/25 07/16/25 Rx release 24 hr tabs albuterol sulfate 90 mcg/actuation 2 puff inhalation QID PRN 01/04/25 07/13/25 07/13/25 Rx aerosol inhaler (Ventolin HFA) shortness of breath or wheezing 30 days #8.5 grams amlodipine 10 mg tablet 10 mg PO DAILY 90 days #90 tabs 01/04/25 07/13/25 07/10/25 Rx fluticasone propionate 50 See Rx Instructions .Route 01/04/25 07/17/25 2 Weeks Ago Rx mcg/actuation nasal .COMPLEX #16 grams ~07/03/25 spray,suspension metoprolol succinate 50 mg 50 mg PO DAILY #90 tabs 03/07/25 07/13/25 07/17/25 03:30 Rx tablet,extended release 24 hr duloxetine 60 mg capsule,delayed 60 mg PO BID 90 days #180 caps 04/05/25 07/13/25 07/16/25 Rx release insulin glargine 100 unit/mL (3 10 unit (0.1 mL) SUBCUT DAILY #3 mL 04/05/25 07/13/25 1 Week Ago Rx mL) subcutaneous pen (Lantus ~07/06/25 Solostar U-100 Insulin) lisinopril 40 mg tablet 40 mg PO DAILY 90 days #90 tabs 04/05/25 07/13/25 07/15/25 Rx meloxicam 15 mg tablet 15 mg PO DAILY 90 days #90 tabs 04/05/25 07/17/25 5 Days Ago Rx ~07/12/25 omeprazole 20 mg capsule,delayed 20 mg PO DAILY 90 days #90 caps 04/05/25 07/13/25 07/17/25 03:30 Rx release pregabalin 150 mg capsule 150 mg PO TID 30 days #90 caps 04/05/25 07/13/25 07/16/25 Rx tizanidine 2 mg tablet 2 mg PO .at bedtime PRN muscle 04/05/25 07/17/25 2 Weeks Ago Rx spasticity 30 days #30 tabs ~07/03/25 chlorthalidone 25 mg tablet 25 mg PO DAILY #30 tabs 05/31/25 07/13/25 07/10/25 Rx mirtazapine 15 mg tablet 15 mg PO .qhs 30 days #30 tabs 06/01/25 07/17/25 Unknown Rx acarbose 50 mg tablet 50 mg PO TID 07/13/25 07/13/25 07/13/25 History Allergies Allergy/AdvReac Type Severity Reaction Status Date / Time Alpha-Gal Allergy Severe dirreaha Verified 07/13/25 14:35 (Jfkwnisit-Tbkim-5,3-Gala celecoxib (From Celebrex) AdvReac Mild ADR-NAUSEA Verified 07/13/25 14:35 Vqmaupt-WHM-XeR Reductase AdvReac Mild ADR-Cramping Verified 07/13/25 14:35 Inhibitor (Vjnlalv-Sie-Aqf of the Reductase Inhibitor) Muscles PFSH Acute PFSH: Medical History Psychiatric care NELLIE (obstructive sleep apnea) Type 2 diabetes mellitus GERD (gastroesophageal reflux disease) BPH (benign prostatic hyperplasia) Benign hypertension Erectile dysfunction Multinodular goiter (nontoxic) Hyperlipidemia Statin intolerance Rotator cuff arthropathy of left shoulder Chronic back pain greater than 3 months duration Allergic rhinitis Chronic pain syndrome Surgical History Status post reverse arthroplasty of left shoulder (09/14/23) H/O spinal fusion H/O knee surgery Previous back surgery Family History Father Cancer Mother Diabetes Sister Diabetes Brother Diabetes Cancer Denies family history of Hypertension Stroke Social History Smoking and tobacco/nicotine status: current every day tobacco/nicotine user (marijuana) Alcohol intake: never Substance/Drug Use: current Other substance/drug use details: gummies Vitals/I&O/Wt Last Vital Signs Temp 97.0 F L 07/17/25 09:33 Pulse 101 H 07/17/25 10:03 Resp 14 07/17/25 10:03 BP 143/86 07/17/25 10:03 Pulse Ox 94 07/17/25 10:03 O2 Del Method Room Air 07/17/25 10:03 07/16/25 07/17/25 07/17/25 22:59 06:59 14:59 Intake Total 100 / 100 800 / 800 Output Total 225 / 225 Balance 100 / 100 575 / 575 Weight last 48 hrs Weight 85.1 kg Weight 90.265 kg Physical Exam Const: COMMON NORMALS: no acute distress and alert HENMT: COMMON NORMALS: normocephalic and atraumatic Neck/C-Spine: COMMON NORMALS: full ROM and no lymphadenopathy Lymph: LYMPHATIC: no lymphadenopathy noted Chest: COMMONS NORMALS: normal inspection of the chest Resp: COMMON NORMALS: normal respiratory effort and No retractions Cardio: COMMON NORMALS: Peripheral pulses 2+ throughout PERIPHERAL PULSES: Peripheral pulses 2+ throughout GI: COMMON NORMALS: non-tender Extremity: NARRATIVE EXTREMITY EXAM: Left shoulder?patient's dressing is dry and intact. He is in a UltraSling of the left shoulder. Fingers are warm and well-perfused and he has normal broadcast program director strength 5 out of 5. No swelling or erythema seen around the surgical site. Axillary motor and sensations intact Neuro: SENSORIUM/ORIENTATION: Yes alert Skin: GENERAL SKIN EXAM: dry skin Urinary Catheter Management: Fraire: Cath Placed During This Visit: yes Urinary Catheter Date of Insertion: 07/17/25 Urinary Catheter Time of Insertion: 07:15 Data 07/17/25 06:31 07/17/25 06:31 A&P Assessment and plan 1. Status post arthroscopic surgery of left knee: s/t left knee bone on bone osteoarthritis & degenerative joint disease Planned procedure completed 07/17/2025, without complication 07/17/2025; left total knee arthroplasty?without abnormality IVF I&O Eliquis restart 07/18/25 Vancomycin and Ancef prophylaxis given Ancef continued Orthopedics - Dr. Com[facility] service consulted for medical management Urinary catheter Pain management; Tylenol, Dilauded, Hydrocodone, Tramadol PT/OT 2. Benign hypertension: BP 146/86 Metoprolol, amlodipine BP monitoring Telemetry 3. Type 2 diabetes mellitus: Glucose 177 > 257 On home metformin and insulin pen, hold Initiate hyperglycemia/hypoglycemia protocol A1c 7.7 Monitor CMP 4. GERD (gastroesophageal reflux disease): On home omeprazole Pantoprazole prophylaxis PDMP PDMP Reviewed: Not Reviewed Attestations Medical Necessity Statement*: Continued hospitalization for one midnight s/t s/p left knee arthroscopy observation. Diagnoses Status post arthroscopic surgery of left knee Z98.890 Benign hypertension I10 Type 2 diabetes mellitus without complication, without long-term current use of insulin E11.9 Diabetes mellitus complication status: without complication Diabetes mellitus supervisor long goods insulin use: without supervisor long goods use Gastroesophageal reflux disease without esophagitis K21.9 Esophagitis presence: without esophagitis Time Spent (min) 70
--- NOTE | 2025-07-17 10:45 | ANES.PROC ---
Anesthesia Procedures Procedure/Date: 07/17/25 Nerve Block ^: Nerve Block 1: Main Anesthesia: general anesthesia Time Out Performed: Yes Consent: requested by attending/covering physician and from patient Laterality: Left Nerve block location: adductor canal Anesthesia monitors applied: pulse oximetry, EKG, BP cuff and oxygen Nerve block position: supine Anesthetic Used: ropivicaine 0.5% Amount of anesthesia used (mL): 15 Ultrasound used to: recognize landmarks Nerve Stimulator Used?: No Interscalene/Femoral BLK: other needle (pjunk 4inch) Injection: neg aspiration of heme Patient Tolerated Procedure: well Complications: none
[2025-07-17] MEDS: HYDROmorphone 0.5 MG/0.5 ML INJ IVP ×3 (11:01→21:43)
[2025-07-17] MEDS: chlorhexidine gluconate 0.12% Btl 473 mL 30 ML MUCOUS MEM ×3 (11:02→21:46)
[2025-07-17] MEDS: tranexamic acid 1,000 MG/100 ML PREMIX 600 MG IV (14:48)
[2025-07-17] MEDS: calcium carb-vit d 600mg/400unit 1 Tablet 1 EACH PO (17:12)
[2025-07-17] MEDS: mupirocin oint 22 gm 1 APPLIC NASAL (17:12)
[2025-07-17] MEDS: sennosides-docusate Tablet 2 TAB PO (17:12)
[2025-07-17] MEDS: fluticasone nasal spray 16gm Btl 1 SPRAY INTRANASAL (17:26)
[2025-07-18] VITALS (8 sets, daily range): BP systolic 140–171; BP diastolic 80–92; PULSE 70–76; RESP 16–19; TEMP 36.4–36.7; O2SAT 91–97; BMI 29.2
[2025-07-18] MEDS: acetaminophen 1,000 MG/100 ML PIGGYBACK 400 MG IV (01:27)
[2025-07-18] MEDS: calcium carb-vit d 600mg/400unit 1 Tablet 1 EACH PO (04:34)
[2025-07-18] MEDS: metoprolol succinate ER (24 HR) 50 mg Tablet PO (04:34)
[2025-07-18] MEDS: sennosides-docusate Tablet 2 TAB PO (04:35)
[2025-07-18] MEDS: multivitamin therapeutic Tablet 1 TAB PO (04:35)
[2025-07-18] MEDS: fluticasone nasal spray 16gm Btl 1 SPRAY INTRANASAL (05:13)
[2025-07-18] MEDS: chlorhexidine gluconate 0.12% Btl 473 mL 30 ML MUCOUS MEM ×2 (05:14→10:38)
[2025-07-18] MEDS: mupirocin oint 22 gm 1 APPLIC NASAL (05:15)
[2025-07-18 05:35] LABS: Hematocrit 34.3 % (37-53); Hemoglobin 11.70 g/dL (11.27-16.99); Mean Corpuscular HGB Conc 34.1 g/dL (30-55); Mean Corpuscular Hemoglobin 29.0 pg (27-33); Mean Corpuscular Volume 85.1 fl (82-101); Nucleated Red Blood Cells % 0 %; Platelet Count 171 10^3/cmm (157-399); Red Blood Count 4.03 10^6/uL (3.85-5.65); White Blood Count 7.86 10^3/uL (3.29-11.43)
[2025-07-18 06:02] LABS: Anion Gap 10.8 (5-19); Blood Urea Nitrogen 16 mg/dL (8-23); Calcium 8.4 mg/dL (8.5-10.5); Carbon Dioxide 28 mmol/L (22-29); Chloride 106 mmol/L (98-107); Glucose 176 mg/dL (65-115); Osmolality Calculated 297 mOsm/kg (285-295); Potassium 3.8 mmol/L (3.5-5.1); Sodium 141 mmol/L (136-145)
[2025-07-18] MEDS: oxyCODONE-APAP 5-325 mg Tablet 1 TAB PO ×2 (06:19→12:22)
[2025-07-18] MEDS: ceFAZolin 2,000 MG in sodium chloride 0.9% (plus) 50 ML 100 MG IV (07:52)
[2025-07-18] MEDS: APIXABAN 2.5 MG TABLET PO (07:53)
--- NOTE | 2025-07-18 10:20 | PC.CHAP ---
Pastoral Care Encounter/Spiritual Assessment Type of Contact [] Declined tetryl dissolver operator visit [] Patient/Family/Request visit [] Outpatient visit [] Follow-up visit [] Physician referral [] Code/Alert [x] Routine visit [] Staff referral [] Actively dying [] Patient sleeping [x] Family support [] [] Out of room [] Palliative care [] [] Receiving care in room [] Pre-surgical visit [] Trauma [] Long length of stay [] ICU visit [] Other: Relational/Emotional Strength [x] Patient feels connected with others/family/visitors/staff [] Distress [] Loneliness/isolation [] Abandonment Spirituality of Patient [x] Person of Tanisha [] Attends Evangelical of their Tanisha [x] Believes in Prayer [] Reads Bible or Adventism materials [] There are Spiritual issues to be addressed Trauma Manager Interventions [x] Prayer [x] Active listening [] Non-anxious presence [x] Spiritual/emotional support [] Crisis/trauma care [] Spiritual counseling [] Bereavement support [] Provided bereavement packet [] Provided Bible/devotional materials [] Provided toy/stuffed animal, coloring book to patient or family member [] Provided Communion [] Anointing/[place] [] Salvation [x] Completed spiritual assessment [] Other: Impact on Illness or Injury [] Angry [] Fearful [] Anxious [] Often cries [] Exhaustion [] Unable to work [] Unable to attend yazidi [] Unable to walk/stand [] Unable to read [] Unable to drive [] Unable to eat/drink [] Unable to sleep [] Unable to be with family [] Patient intubated [] Other: Summary Time spent with patient 5 min
--- NOTE | 2025-07-18 10:30 | PM.PN ---
Subjective Subjective: HPI Tim Zavala is a 70 year old male with prior medical history of HTN, HLD, NELLIE, BPH, DM, HL, ED, cervical stenosis, statin intolerance, left and right shoulder arthroplasty; rotator cuff, spinal fusion, anxiety, and arthritis presenting with complaints of knee pain. 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 Tolerated without complication. Will admit to the hospital service for further evaluation and treatment. In the ED, BP 147/86, HR 92, RR 18, T97.2, O2 93% on room air. WBC 11.84, Hgb 16.60, PLT 284. Potassium, sodium, WNL. Bun and creatinine unremarkable. 07/17/2025; left total knee arthroplasty?without abnormality. 07/18/25: Patient is one day postop left knee surgery. Patient is AAOx4, conversational with no complaints of pain or falls overnight. He is doing PT/OT. Vitals/I&O/Wt Last Vital Signs Temp 97.8 F 07/18/25 07:21 Pulse 72 07/18/25 08:20 Resp 16 07/18/25 08:20 BP 171/92 07/18/25 07:21 Pulse Ox 94 07/18/25 08:20 O2 Del Method Room Air 07/18/25 08:20 07/17/25 07/18/25 07/18/25 22:59 06:59 14:59 Intake Total 1680 / 2530 600 / 3130 2079 / 0 Output Total 950 / 1400 2675 / 4075 Balance 730 / 1130 -2075 / -945 2079 / 2079 Weight last 48 hrs Weight 84.822 kg Weight 85.1 kg Weight 90.265 kg Physical Exam Const: COMMON NORMALS: no acute distress and alert HENMT: COMMON NORMALS: normocephalic and atraumatic HEAD & SCALP: normocephalic and atraumatic Neck/C-Spine: COMMON NORMALS: full ROM and no lymphadenopathy Lymph: LYMPHATIC: no lymphadenopathy noted Chest: COMMONS NORMALS: normal inspection of the chest Resp: COMMON NORMALS: normal respiratory effort and No retractions Cardio: COMMON NORMALS: Peripheral pulses 2+ throughout PERIPHERAL PULSES: Peripheral pulses 2+ throughout GI: COMMON NORMALS: non-tender Extremity: NARRATIVE EXTREMITY EXAM: Left shoulder?patient's dressing is dry and intact. He is in a UltraSling of the left shoulder. Fingers are warm and well-perfused and he has normal pre k teacher strength 5 out of 5. No swelling or erythema seen around the surgical site. Axillary motor and sensations intact Neuro: SENSORIUM/ORIENTATION: Yes alert Skin: GENERAL SKIN EXAM: dry skin Urinary Catheter Management: Fraire: Cath Placed During This Visit: yes Reason for Continuing Indwelling Catheter: Perioperative Use in Selected Surgeries Urinary Catheter Date of Insertion: 07/17/25 Urinary Catheter Time of Insertion: 07:15 Data 07/18/25 05:07 07/18/25 05:07 A&P Assessment and plan 1. Status post arthroscopic surgery of left knee: s/t left knee bone on bone osteoarthritis & degenerative joint disease Planned procedure completed 07/17/2025, without complication Today is day one post op 07/17/2025; left total knee arthroplasty?without abnormality IVF I&O Eliquis restart 07/18/25 Vancomycin and Ancef prophylaxis given Ancef continued Orthopedics - Dr. Combs [facility] service consulted for medical management Urinary catheter Pain management; Tylenol, Dilauded, Hydrocodone, Tramadol PT/OT 2. Benign hypertension: BP 146/86 Metoprolol, amlodipine BP monitoring Telemetry 3. Type 2 diabetes mellitus: Glucose 177 > 257 On home metformin and insulin pen, hold Initiate hyperglycemia/hypoglycemia protocol A1c 7.7 Monitor CMP 4. GERD (gastroesophageal reflux disease): On home omeprazole Pantoprazole prophylaxis PDMP PDMP Reviewed: Not Reviewed Attestations Medical Necessity Statement*: Continued observation but patient is not due to stay any additional midnights. He is pending discharge. Diagnoses Status post arthroscopic surgery of left knee Z98.890 Benign hypertension I10 Type 2 diabetes mellitus without complication, without long-term current use of insulin E11.9 Diabetes mellitus complication status: without complication Diabetes mellitus terminal make up operator insulin use: without senior living use Gastroesophageal reflux disease without esophagitis K21.9 Esophagitis presence: without esophagitis Time Spent (min) 60
== END 2025-07-18 14:30 | disposition home health service (06) ==
LOC: MEDSURG 09:15
PROVIDERS: Physician Assistant; Admitting Provider Student in an Organized Health Care Education/Training Program; PCP Family Medicine; Visit Provider Student in an Organized Health Care Education/Training Program
PROC: 8E0Y0CZ Robotic Assisted Procedure of Lower Extremity, Open Approach (ICD-10-PCS; CPT 27447; principal; 2025-07-17 07:00)
DX: M17.12 Unilateral primary osteoarthritis, left knee (principal); K21.9 Gastro-esophageal reflux disease without esophagitis; I10 Essential (primary) hypertension; E11.9 Type 2 diabetes mellitus without complications; G47.33 Obstructive sleep apnea (adult) (pediatric); Z99.89 Dependence on other enabling machines and devices; Z79.84 Long term (current) use of oral hypoglycemic drugs; Z79.4 Long term (current) use of insulin; Z91.014 Allergy to mammalian meats; E78.5 Hyperlipidemia, unspecified; F17.200 Nicotine dependence, unspecified, uncomplicated; F12.90 Cannabis use, unspecified, uncomplicated; N40.0 Benign prostatic hyperplasia without lower urinary tract symptoms
CPT/HCPCS: 27447; 20985; 36415; 36416; 51702; 73560; 80048; 82962; 85025; 86850; 86900; 97110; 97116; 97161; 97165; 97530; A4216; C1713; C1776; G0378; J0131; J0169; J0690; J1171; J1885; J2250; J2270; J2371; J2405; J2704; J2795; J3010; J3373; J3490; J7030; J7120; J9999; L8699

== ENCOUNTER → 2025-08-01 10:56 | Outpatient (BNVA) | payer MEDICARE, SELFPAY | PROVIDERS: PCP Family Medicine; Visit Provider Physician Assistant | DX: Z98.890 Other specified postprocedural states (principal); Z96.652 Presence of left artificial knee joint | CPT/HCPCS: 73560; 73565; 99024 ==

== ENCOUNTER 2025-08-29 11:51 | Outpatient (RCR) | payer MEDICARE, SELFPAY | END 2025-08-30 23:59 | disposition home or self-care (01) | LOC: MPT 11:51 | PROVIDERS: Visit Provider Student in an Organized Health Care Education/Training Program | DX: Z47.1 Aftercare following joint replacement surgery (principal); Z96.652 Presence of left artificial knee joint | CPT/HCPCS: 97110; 97162 ==